=== PATIENT | male | born 1945 | race Hispanic/Latino ===

== ENCOUNTER 2018-12-08 10:13 | Outpatient (CLI) | payer MEDICARE, OTHER ==
--- NOTE | 2018-12-08 12:45 | RAD ---
TWO VIEWS OF THE CHEST: 12/08/18 COMPARISON: 02/20/16. HISTORY: Shortness of breath. FINDINGS: Two views of the chest shows a normal sized cardiomediastinal silhouette. Scarring is seen in the lef t lung base. There is no evidence of consolidation, mass, or pleural effusion. IMPRESSION: Stable exam. POS: [facility] [place]
--- NOTE | 2018-12-08 12:47 | RAD ---
THREE VIEWS OF THE LEFT SHOULDER: 12/08/18 HISTORY: Left shoulder pain. FINDINGS: Three views of the left shoulder shows no evidence of acute fracture or dislocation. There is a high riding humeral head. Joint space narrowing and osteophyte formation is seen in the acromioclavicular and glenohumeral joints. There are remote healed left rib fractures. IMPRESSION: Moderate left shoulder osteoarthritis. POS: [facility]
== END 2018-12-08 10:14 | disposition home or self-care (01) ==
LOC: BICRAD 10:13
DX: M25.512 Pain in left shoulder (principal); R06.02 Shortness of breath; M19.012 Primary osteoarthritis, left shoulder
CPT/HCPCS: 71046

== ENCOUNTER 2019-11-10 19:34 | Emergency (ER) | payer MEDICARE, OTHER ==
[~2019-11-10 19:34] MED LIST: Iopamidol 370 76% 100 ML VIAL ONE
[2019-11-10 20:19] LABS: #Basophils 0.1 thou/uL (0.0-0.2); #Eosinphils 0.1 thou/uL (0.0-0.7); #Lymphocytes 0.9 thou/uL (1.20-3.40); #Monocytes 0.4 thou/uL (0.11-0.59); #Neutrophils 2.4 thou/uL (1.40-6.50); %Basophils 1.5 % (0.0-1.0); %Eosinophils 1.5 % (0.0-10.0); %Lymphocytes 22.7 % (21.0-51.0); %Monocytes 10.7 % (0.0-10.0); %Neutrophils 63.5 % (42.0-75.0); Hemoglobin 10.3 g/dL (14.0-18.0); Mean Corpuscular HGB CONC 34.9 g/dL (32.0-36.0); Mean Corpuscular Hemoglobin 26.5 pg (27.0-31.0); Mean Corpuscular Volume 76.1 fL (78.0-98.0); Mean Platelet Volume 7.5 fL (7.4-10.4); Platelet Count 217 thou/uL (130-400); RBC Distribution Width 13.4 % (11.5-14.5); Red Blood Cell (RBC) Count 3.87 mill/uL (4.70-6.10); White Blood Cell (WBC) Count 3.8 thou/uL (4.8-10.8)
[2019-11-10 20:41] LABS: ALT (SGPT) 20 U/L (8-55); AST (SGOT) 22 U/L (5-34); Albumin 3.9 g/dL (3.4-4.8); Alkaline Phosphatase 145 U/L (40-110); Anion Gap 14 mmol/L (10-20); BUN (Urea Nitrogen) 10 mg/dL (8.4-25.7); Bilirubin, Total 0.2 mg/dL (0.2-1.2); CK (CPK) 258 U/L (30-200); Calc. Creatinine Clearance 0 mL/min (70-130); Calcium 8.7 mg/dL (7.8-10.44); Carbon Dioxide 24 mmol/L (23-31); Chloride 89 mmol/L (98-107); Estimated GFR-MDRD 66; Globulin 2.6 g/dL (2.4-3.5); Glucose 97 mg/dL (83-110); Lipase 10 U/L (8-78); Magnesium 1.4 mg/dL (1.6-2.6); Potassium 3.5 mmol/L (3.5-5.1); Protein, Total 6.5 g/dL (5.8-8.1); Sodium 123 mmol/L (136-145)
--- NOTE | 2019-11-10 21:12 | RAD ---
PORTABLE CHEST: 11/10/19 PROVIDED CLINICAL HISTORY: Shortness of breath and cough. FINDINGS: Comparison 12/08/18. The cardiac silhouette remains enlarged. Blunting of the left lateral costophrenic angle persists. Th ere is opacity overlying the lateral aspect of the left upper lung zone that may be pleural in etiolo gy. The right lung appears grossly clear. There is no evidence for pneumothorax. IMPRESSION: Chronic appearing left basilar pleural and parenchymal opacity with incompletely characterized opacit y involving the lateral margin of the left upper lung zone. This could reflect loculated fluid. The p arenchymal process is not excluded. POS: [facility]
--- NOTE | 2019-11-10 21:30 | CT ---
CT ANGIOGRAM THORAX WITH IV CONTRAST AND 3-D RECONSTRUCTIONS CLINICAL INDICATION: Right-sided chest pain and right shoulder blade pain. COMPARISON: 07/20/2014 FINDINGS: Pulmonary arteries: No filling defects are seen in the pulmonary arteries to suggest a pulmonary embo serenity. Aorta: Vascular calcifications are present. Thoracic aorta is normal in caliber without evidence of a n aortic dissection. Lungs: Minimal ground glass densities seen in the right middle lobe likely related to mild volume los s. There is mild atelectasis present at the left lung base and left upper lung zone. Pleural-based calcification is seen at the posteromedial left upper lobe. There are also reticulonodular densities seen in the left upper and lower lobes. Mediastinum: The heart is enlarged. There is a small pericardial effusion present. There is an enlarged right paratracheal lymph node near the level of the diamante which measures 1.7 cm in short axis dimension. There is also an enlarged subcarinal lymph node measuring 1.8 cm in short axis dimension. Thyroid gland: Artifact extends to the level of the thyroid gland which limits adequate evaluation. Osseous structures: There is a large destructive mass involving the posterior fifth rib which measure s 4.9 cm x 5.8 cm x 3.6 cm. This mass results in mass effect on the left upper lobe with adjacent volume loss. There are a few left-sided rib deformities which may related to prior fracture. Degenera tive changes are seen in the spine. Calcification of the anterior longitudinal ligament is present. Chest wall: No abnormality visualized. Upper abdomen: There is evidence of left nephrectomy and adrenalectomy. Colonic diverticulosis is see n in the region of the splenic flexure.. IMPRESSION: 1. Findings worrisome for metastatic disease with mediastinal lymphadenopathy and a destructive soft tissue mass involving the left posterior fifth rib. This mass is amenable to percutaneous biopsy. 2. Reticulonodular densities seen in the left upper lobe and left lower lobe which could be attributa ble to infectious or inflammatory process. Lymphangitic spread of tumor on the left could not be entirely excluded. 3. Cardiomegaly with small pericardial effusion. 4. Evidence of left nephrectomy and adrenalectomy. 5. No CT evidence of a pulmonary embolus.
== END 2019-11-10 22:03 | disposition home or self-care (01) ==
LOC: ERS 19:34
DX: J06.9 Acute upper respiratory infection, unspecified (principal); E83.42 Hypomagnesemia; E87.1 Hypo-osmolality and hyponatremia; E11.9 Type 2 diabetes mellitus without complications; I10 Essential (primary) hypertension; Z79.899 Other long term (current) drug therapy
CPT/HCPCS: 71045; 71275; 80053; 82550; 83690; 83735; 83880; 84484; 85025; 85379; 93005; Q9967

== ENCOUNTER 2020-01-05 07:41 | Outpatient (CLI) | payer MEDICARE, OTHER ==
--- NOTE | 2020-01-05 12:29 | RAD ---
EXAM: Chest PA and lateral: HISTORY: Preoperative exam. Left lung mass COMPARISON: 11/10/2019 FINDINGS: Heart: Cardiomegaly Aorta: Atherosclerosis Pulmonary vessels: Normal Costophrenic angles: Left-sided pleural effusion. Lungs: No demonstration of a pleural-based mass along the left hemithorax, measuring at least 8.3 cm. Pneumothorax: No pneumothorax Osseous structures: Mottling of the left ribs is noted. IMPRESSION: Persistent left hemithoracic pleural-based mass. Stable changes of the left ribs and stable left pleu ral effusion.
[2020-01-05 14:13] LABS: Hemoglobin 10.4 g/dL (14.0-18.0); Mean Corpuscular HGB CONC 32.4 g/dL (32.0-36.0); Mean Corpuscular Volume 80.2 fL (78.0-98.0); Mean Platelet Volume 7.5 fL (7.4-10.4); Platelet Count 336 thou/uL (130-400); RBC Distribution Width 15.5 % (11.5-14.5); Red Blood Cell (RBC) Count 3.99 mill/uL (4.70-6.10); White Blood Cell (WBC) Count 7.4 thou/uL (4.8-10.8)
[2020-01-05 15:10] LABS: Anion Gap 15 mmol/L (10-20); BUN (Urea Nitrogen) 22 mg/dL (8.4-25.7); Calc. Creatinine Clearance 0 mL/min (70-130); Calcium 9.2 mg/dL (7.8-10.44); Carbon Dioxide 20 mmol/L (23-31); Chloride 100 mmol/L (98-107); Estimated GFR-MDRD 75; Glucose 144 mg/dL (83-110); Potassium 4.4 mmol/L (3.5-5.1); Sodium 131 mmol/L (136-145)
[2020-01-06 12:45] LABS: SARS-CoV-2 MS2 Positive; SARS-CoV-2 N Gene Negative; SARS-CoV-2 S Gene Negative; SARS-CoV-2 by NAA Not Detected (NotDetected); SARS-CoV-2 orf1ab Negative
--- NOTE | 2020-01-09 15:26 | EKG ---
Test Reason : Blood Pressure : / mmHG Vent. Rate : 071 BPM Atrial Rate : 071 BPM P-R Int : 190 ms QRS Dur : 116 ms QT Int : 396 ms P-R-T Axes : 033 -42 021 degrees QTc Int : 430 ms Normal sinus rhythm Left axis deviation Left ventricular hypertrophy with QRS widening Abnormal ECG When compared with ECG of 10-NOV-2019 19:57, No significant change was found Confirmed by CARMELA CORDOBA M.D. ([id number]) on 01/09/2020 3:25:27 PM Referred By: KAMARI Confirmed By:CARMELA CORDOBA M.D.
== END 2020-01-05 07:42 | disposition home or self-care (01) ==
LOC: LABBT 07:41 → SCSRAD 07:42
PROVIDERS: ATTEND Surgery
DX: Z01.818 Encounter for other preprocedural examination (principal); Z20.828 Contact with and (suspected) exposure to other viral communicable diseases; C64.9 Malignant neoplasm of unspecified kidney, except renal pelvis; J90 Pleural effusion, not elsewhere classified; R91.8 Other nonspecific abnormal finding of lung field
CPT/HCPCS: 71046; 80048; 85027; 87635; 93005; 93010; U0003

== ENCOUNTER 2020-01-09 05:56 | Day surgery (SDC) | payer MEDICARE, OTHER ==
[2020-01-04 12:25] VITALS: BMI 33.2
[2020-01-09] MEDS ORDERED: Bupivacaine 0.25% HCL 30 ML VIAL ONE (06:43)
[2020-01-09] MEDS ORDERED: Lidocaine 1% w/Epinephrine 1:100K 20 ML VIAL ONE (06:43)
[2020-01-09] MEDS ORDERED: Midazolam HCl 2 mg/2 ml Vial ONE (06:50)
[2020-01-09] MEDS ORDERED: Fentanyl 100 MCG/2 ML VIAL ONE (06:50)
[2020-01-09] MEDS ORDERED: Propofol 500 MG/50 ML VIAL ONE (06:51)
[2020-01-09] MEDS ORDERED: Albuterol Sulfate 2.5 mg/3 ml Neb ONE (07:03)
--- NOTE | 2020-01-09 08:49 | RAD ---
EXAM: CHEST ONE VIEW HISTORY: Mediport placement. COMPARISON: 01/05/2020 FINDINGS: There has been interval placement of a right internal jugular vein Mediport catheter with tip overlyi ng the expected location of the SVC. No pneumothorax is identified. The pleural-based mass overlying the left upper chest and resulting in obstruction of the left posterior fifth rib is again seen. Deformity of the left posterior seventh rib is again seen. Blunting of the left lateral costophrenic angle is seen seen on multiple prior studies dating back to 2014 likely due to pleural a nd parenchymal scarring. Right lung is clear. No pleural effusion is seen. Cardiac silhouette is magnified by projection but does appear mildly enlarged. Vascular calcifications are seen in thoracic aorta. Surgical clips overlie the epigastric region. No other interval change. IMPRESSION: 1. Interval placement of a right internal jugular vein Mediport catheter without evidence of pneumoth orax. 2. Destructive mass involving the left posterior fifth rib is again seen. 3. Pleural and parenchymal scarring left lung base.
--- NOTE | 2020-01-09 21:18 | OP ---
DATE OF PROCEDURE: 01/09/2020 PREOPERATIVE DIAGNOSIS: Renal cell cancer. POSTOPERATIVE DIAGNOSIS: Renal cell cancer. PROCEDURE PERFORMED: Tunneled central line subcutaneous port (MediPort CT injectable, low-profile). ANESTHESIA: TIVA local. ESTIMATED BLOOD LOSS: Minimal. COMPLICATIONS: None. FINDINGS: The tip of the catheter was at the atriocaval junction. DESCRIPTION OF PROCEDURE: The patient was taken to the operating room and laid supine on the operating room table. After sedation was obtained, bilateral neck and chest were shaved, prepped, and draped in a sterile fashion. Local anesthetic infiltrated over the right internal jugular vein. The internal jugular vein was cannulated using a 22-gauge Finder needle followed by Seldinger needle. Wire was passed into the superior vena cava under fluoro guidance. A small halie was made at the wire entrance site. A separate 3 cm incision was made in the right upper chest. Subcutaneous pocket made below the lower incision. Tubing for the MediPort tunneled from the inferior to superior incision. An introducer sheath was placed over the wire into the superior vena cava under fluoro guidance. The dilator and wire were removed. The end of the catheter threaded into the sheath. The sheath was peeled away. The tip of the catheter was at the atriocaval junction. MediPort tubing was cut to fit the MediPort at the lower incision, connected to the MediPort. MediPort was sewn to the chest wall in the subcutaneous pocket using Prolene. MediPort flushes and draws blood without difficulties, flushed with a heparin flush. The wounds were all irrigated and closed using 3-0 Vicryl, 4-0 Monocryl, and Dermabond. The patient was sent to Recovery in stable condition. All instrument counts, needle counts, lap counts are correct. Job ID: [id number]
== END 2020-01-09 09:20 | disposition home or self-care (01) ==
LOC: SDC 05:56
PROVIDERS: ATTEND Surgery
PROC: 0JH60WZ Insertion of Totally Implantable Vascular Access Device into Chest Subcutaneous Tissue and Fascia, Open Approach (ICD-10-PCS; principal; 2020-01-09)
PROC: 02HV33Z Insertion of Infusion Device into Superior Vena Cava, Percutaneous Approach (ICD-10-PCS; 2020-01-09)
PROC: B518ZZA Fluoroscopy of Superior Vena Cava, Guidance (ICD-10-PCS; 2020-01-09)
DX: C64.9 Malignant neoplasm of unspecified kidney, except renal pelvis (principal); E11.9 Type 2 diabetes mellitus without complications; I10 Essential (primary) hypertension; Z79.52 Long term (current) use of systemic steroids; Z79.82 Long term (current) use of aspirin; Z79.84 Long term (current) use of oral hypoglycemic drugs; Z79.899 Other long term (current) drug therapy; Z91.048 Other nonmedicinal substance allergy status; Z90.5 Acquired absence of kidney
CPT/HCPCS: 71045; 94640; C1788; J0690; J1642; J2250; J2704; J3010; J7611; S0020

== ENCOUNTER 2020-02-28 10:04 | Outpatient (CLI) | payer MEDICARE, OTHER ==
[2020-02-28 23:35] LABS: SARS-CoV-2 MS2 Positive; SARS-CoV-2 N Gene Negative; SARS-CoV-2 S Gene Negative; SARS-CoV-2 by NAA Not Detected (NotDetected); SARS-CoV-2 orf1ab Negative
== END 2020-02-28 10:05 | disposition home or self-care (01) ==
LOC: LABBT 10:04
PROVIDERS: ATTEND Otolaryngology Plastic Surgery within the Head & Neck
DX: Z01.812 Encounter for preprocedural laboratory examination (principal); Z20.828 Contact with and (suspected) exposure to other viral communicable diseases
CPT/HCPCS: 87635; U0003

== ENCOUNTER 2020-03-01 23:36 | Inpatient (IN) | payer MEDICARE, OTHER ==
[2020-03-02 02:08] LABS: Anion Gap 11 mmol/L (10-20); BUN (Urea Nitrogen) 12 mg/dL (8.4-25.7); Calc. Creatinine Clearance 0 mL/min (70-130); Calcium 9.2 mg/dL (7.8-10.44); Carbon Dioxide 24 mmol/L (23-31); Chloride 93 mmol/L (98-107); Estimated GFR-MDRD 80; Glucose 92 mg/dL (83-110); Potassium 4.4 mmol/L (3.5-5.1); Sodium 124 mmol/L (136-145)
--- NOTE | 2020-03-02 04:16 | PDOC.HHP ---
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 Patient has had dysphagia starting since December of this year. He has been following with Dr. Adhikari ENT. He is scheduled for a barium swallow study tomorrow due to progressing symptoms. Patient also has a right submandibular mass that he was told was reactive lymphadenopathy from his chemotherapy. He states that he is still able to swallow small sips of water but is clearing his throat often and feels a globus sensation in the back of his throat making it difficult for him to swallow. States that this is worse when he is laying down or backwards. he was diagnosed on 2008 and is currently on immunotherapy, last treatment was today Hospitalist ROS - Review of Systems All other systems reviewed; all pertinent +/- noted in HPI/Subj Hospitalist History - Past Surgical History Past Surgical History: reports: Hernia Repair Other Surgical History: lobectomy kidney removal - Family History Family History: reports: cancer - Social History Smoking Status: Never smoker Alcohol: reports: None Drugs: reports: none - Exam General Appearance: NAD, awake alert Eye: PERRL, anicteric sclera ENT: normocephalic atraumatic, no oropharyngeal lesions Neck: supple, symmetric, no JVD Heart: RRR, no murmur, no gallops Respiratory: CTAB, no wheezes, no rales, no ronchi Gastrointestinal: soft, non-tender, non-distended Extremities: no cyanosis, no clubbing, no edema Skin: normal turgor, no lesions, no rashes Neurological: cranial nerve grossly intact, normal sensation to touch, no weakness Musculoskeletal: normal tone, normal strength, no muscle wasting Psychiatric: normal affect, normal behavior, A&O x 3 Hospitalist Results - Labs Result Diagrams: 03/02/20 01:30 Lab results: Sodium 124 mmol/L (136-145) L 03/02/20 01:30 Potassium 4.4 mmol/L (3.5-5.1) 03/02/20 01:30 Chloride 93 mmol/L (98-107) L 03/02/20 01:30 Carbon Dioxide 24 mmol/L (23-31) 03/02/20 01:30 BUN 12 mg/dL (8.4-25.7) 03/02/20 01:30 Creatinine 0.93 mg/dL (0.7-1.3) 03/02/20 01:30 Glucose 92 mg/dL (83-110) 03/02/20 01:30 Calcium 9.2 mg/dL (7.8-10.44) 03/02/20 01:30 Hospitalist H&P A/P - Problem (1) Dysphagia Code(s): R13.10 - DYSPHAGIA, UNSPECIFIED Status: Acute (2) Hyponatremia Code(s): E87.1 - HYPO-OSMOLALITY AND HYPONATREMIA Status: Acute (3) Metastatic renal cell carcinoma Code(s): C64.9 - MALIGNANT NEOPLASM OF UNSP KIDNEY, EXCEPT RENAL PELVIS Status: Acute (4) HTN (hypertension) Code(s): I10 - ESSENTIAL (PRIMARY) HYPERTENSION Status: Acute (5) HLD (hyperlipidemia) Code(s): E78.5 - HYPERLIPIDEMIA, UNSPECIFIED Status: Acute - Plan Plan: case of an 74y/o male with the stated pmhx who presents with dysphagia dysphagia - ct consistent with a pharyal mass, likely metastasis - ent consulted - npo - speech eval hyponatremia - ivfs - f/u bmp - tsh / osmolality - calculated osmolality 257 renal cell carcinoma with mets - oncology consulted - pain management
[2020-03-02] MEDS: Sodium Chloride 0.9% 1,000 ML IV SCH (05:49)
[2020-03-02 06:23] VITALS: BMI 34.7
--- NOTE | 2020-03-02 07:58 | CT ---
PRELIMINARY REPORT/[facility]/EMERGENCY AFTER HOURS PROCEDURE EXAM: CT Neck with Intravenous Contrast. CLINICAL HISTORY: 74-year-old male with past medical history significant for renal cell carcinoma with mets to the esop hagus presents with complaints of difficulty swallowing. Patient has had dysphagia starting since December of this year. Patient also has a right submandibular mass that he was told was reactive lym phadenopathy from his chemotherapy. TECHNIQUE: Axial computed tomography images of the neck with intravenous contrast. Sagittal and coronal reformat ions performed. CONTRAST: With; ISOVUE 370, 90ML COMPARISON: None provided. FINDINGS: PHARYNX: Enhancing mass in the posterior hypopharynx measuring 2.2 x 3.1 x 2.0 cm. This narrows the glottic ai rway without obstruction. LARYNX: The larynx is unremarkable. Normal epiglottis. RETROPHARYNGEAL SPACE: No retropharyngeal soft tissue swelling or gas. SALIVARY GLANDS: The parotid, submandibular, and sublingual glands are unremarkable. LYMPH NODES: No lymphadenopathy. THYROID: The thyroid gland is unremarkable. No nodule. BONES: No acute fractures. Multifocal degenerative changes of the spine. Lytic lesion within the T5 vertebra l body measuring 1.8 cm. MISCELLANEOUS: Right-sided chest port. Left upper lobe tree in bud opacities. IMPRESSION: 1. Enhancing mass in the posterior hypopharynx. Correlate with findings on direct visualization. 2. 1.8 cm lytic lesion within the T5 vertebral body. 3. Tree-in-bud opacities within the left upper lobe of the lung. Although nonspecific, this could r epresent atypical infectious process or aspiration. ELECTRONICALLY SIGNED BY: Mati Dove M.D. Mar 02, 2020 2:48:36 AM [employer] This report is intended for review by the ordering physician only, in accordance of law. If you recei ve this report in error, please call [facility] at [phone]. FINAL REPORT CT Neck Soft Tissue W Con History: Dysphagia Comparison: None. Findings/Impression: Concordant with the preliminary report. Transcribed Date/Time: 03/02/2020 8:01 AM
[2020-03-02] MEDS: Enoxaparin Sodium 40 MG/0.4 ML SYRINGE SC SCH ×2 (08:13→08:15)
--- NOTE | 2020-03-02 09:53 | PDOC.BPN ---
- Brief Progress Note Patient was seen examined. This is a 74 years ago gentleman who was admitted this morning, he significant past medical histories of renal cell carcinoma with metastatic to bone, esophagus, lung, who presented with dysphagia. Patient received his treatment from Dr. Salazar in [place]. Stated he was on oral chemo agent, and is no longer working. So his oncologist started him on chemotherapy. He has been experiencing progressive dysphagia, and found to have a right submandibular mass, thought due to reactive lymphadenopathy from his chemotherapy. He was also seen by his PCP, and was given a course of antibiotic, without significant improvement. ENT has been consulted, pending further recommendation. Patient has mild hyponatremia, possibly combinations of poor p.o. intake, and possible SIADH, given history of lung mets. We will repeat his BMP, and adjust fluids accordingly. Avoid overcorrection Obtain records from Dr. Salazar's office Continue management as per admitting provider
--- NOTE | 2020-03-02 11:43 | RAD ---
Modified barium swallow HISTORY: Dysphagia. Feeding difficulties. FINDINGS: Exam was performed in conjunction with speech pathology with multiple consistencies. Video review is available and demonstrates prominent early spill of contrast with the tested consistencies. To the level of the piriform sinuses. Very limited motion of the epiglottis with swallowing. No eversion of the esophagus. Prominent manager switch ior muscular hypertrophy compensation. Deep penetration is seen with most consistencies. Aspiration of a small amount of contrast with the thinner liquids. The esophagus below the level of the hypopharynx was not evaluated. Please see separate detailed report from speech pathology.
[2020-03-02 14:45] LABS: Anion Gap 12 mmol/L (10-20); BUN (Urea Nitrogen) 10 mg/dL (8.4-25.7); Calc. Creatinine Clearance 95 mL/min (70-130); Calcium 9.7 mg/dL (7.8-10.44); Carbon Dioxide 28 mmol/L (23-31); Chloride 98 mmol/L (98-107); Estimated GFR-MDRD 85; Glucose 109 mg/dL (83-110); Potassium 5.2 mmol/L (3.5-5.1); Sodium 133 mmol/L (136-145)
[2020-03-02] MEDS ORDERED: Iopamidol 370 76% 100 ML VIAL ONE (15:14)
[2020-03-02] MEDS ORDERED: hydrALAZINE 20 MG/ML VIAL SLOW IVP PRN (15:25)
--- NOTE | 2020-03-02 20:02 | CON ---
DATE OF CONSULTATION: 03/02/2020 REASON FOR CONSULTATION: Oropharyngeal dysphagia, history of head/neck cancer. CONSULTING PROVIDER: Dr. Harjeet Calles. HISTORY OF PRESENT ILLNESS: The patient is a 74-year-old male with a past medical history of renal cell carcinoma with metastatic disease to the esophagus, lung, and bone with hypertension and diabetes, presenting with complaints of dysphagia. He states that he has been having intermittent episodes of dysphagia that have been occurring since August of 2019 characterized primarily as the sensation of foods getting stuck at the level of the cricoid cartilage with the ingestion of both solid and liquid foods. Oftentimes, the patient would have coughing/gurgling sounds associated with primarily liquid food ingestion, but also sometimes with solid food. He was seen by Dr. Adhikari (ENT) with a CT neck performed months ago with no specific findings at that time. He was also evaluated by my partner, Dr. Louis, who performed an upper endoscopy on November 25, 2019, with no specific abnormality seen in the hypopharynx or esophagus to explain the patient's dysphagia. Dilation to 18 mm with a Savary dilator did not result in any appreciable change. However, yesterday evening, the patient was consuming dinner and suddenly had acute onset of obstructive dysphagia to the point where the patient was not able to swallow either solids or liquids, at which point, it prompted him to seek healthcare assistance at the [facility] and came in for further evaluation. On admission to the hospital, he underwent a modified barium swallow study which showed deep penetration with most consistencies, but also small amount of aspiration with thin liquids consistent with oropharyngeal dysphagia. With the above symptoms, he also endorsed increased shortness of breath especially with lying down, intermittent nausea (since starting Afinitor), odynophagia, fatigue, and weight loss of 17 to 18 pounds since June of this year. Currently, he denies any dyspnea on exertion, vomiting, fevers, chills, hematemesis, melena, or hematochezia. REVIEW OF SYSTEMS: A 10-category review of systems was obtained with all responses negative except for the pertinent positives as listed in HPI. PAST MEDICAL HISTORY: As per HPI. PAST SURGICAL HISTORY: Nephrectomy, lobectomy, and hernia repair. FAMILY HISTORY: Denies any GI malignancies. SOCIAL HISTORY: Denies any tobacco, alcohol, or illicit drug use. OUTPATIENT MEDICATIONS: Reviewed. ALLERGIES: NO KNOWN DRUG ALLERGIES. PHYSICAL EXAMINATION: VITAL SIGNS: Temperature 97.7, pulse 72, blood pressure 160/80, respiratory rate 20, saturating 94% on room air. GENERAL: The patient was lying in bed, in no acute distress. Alert and oriented x4. HEENT: Normocephalic and atraumatic. NECK: Supple. No JVD or scleral icterus noted. A submandibular lymph node was palpated along the right mandible. CARDIOVASCULAR: Regular rate and rhythm with no discernible murmurs, gallops, or rubs. RESPIRATORY: Clear to auscultation bilaterally with no discernible wheezes or rales. ABDOMEN: Normoactive bowel sounds. Soft, nontender, nondistended. EXTREMITIES: No cyanosis, clubbing, or edema. LABORATORY DATA: Chemistry with a sodium of 124, potassium 4.4, chloride 93, CO2 of 24, BUN 12, creatinine 0.93, glucose 92. IMAGING DATA: A modified barium swallow study obtained on March 02, 2020, showed limited motion of the epiglottis with swallowing. Deep penetration was also seen with most consistencies as well as a small amount of aspiration with the ingestion of thin liquids. CT of the neck was also performed on March 02, 2020, which showed the presence of an enhancing mass in the posterior hypopharynx measuring 2.2 x 3.1 x 2 cm with narrowing of the glottic airway without obstruction. The larynx was unremarkable with a normal epiglottis. Multifocal degenerative changes were seen in the spine with a lytic lesion within the T5 vertebra measuring 1.8 cm and lastly, there were tree-in-bud opacities in the left upper lobe of the lung, which could represent an atypical process versus aspiration. ASSESSMENT AND PLAN: The patient is a 74-year-old male with past medical history of hypertension, diabetes, and renal cell carcinoma with metastatic disease to the esophagus, lung, and bone (currently on immunotherapy), presenting with complaints of oropharyngeal dysphagia with signs of aspiration on modified barium swallow study. Oropharyngeal dysphagia: The patient is presenting with worsening dysphagia. This has been present since August of 2019, characterized as the sensation of foods getting stuck at the level of the cricoid cartilage with both ingestion of solid and liquid food stuffs. However, over the last 24 hours, he has had significant worsening of dysphagia being unable to tolerate solids or liquids resulting in increased coughing and gagging. CT of the head and neck obtained on March 02 showed the presence of an enhancing mass in the posterior hypopharynx, which is concerning for continued metastatic disease from his prior renal cell carcinoma and maybe resulting in muscular discoordination contributing to oropharyngeal dysphagia. He also underwent a modified barium swallow study which showed evidence of possible aspiration and penetration. At this time, the patient's dysphagia seems most consistent with oropharyngeal dysphagia resulting in aspiration and with an enhancing mass in the posterior hypopharynx, the patient may benefit from a percutaneous gastrostomy tube to provide nutrition both during treatment of this hypopharynx mass in addition to bypassing the oropharynx secondary to aspiration to prevent further episodes of aspiration. RECOMMENDATIONS: 1. Would continue patient on n.p.o. status given the modified barium swallow study showing aspiration. 2. Would plan for EGD with percutaneous gastrostomy tube placement tomorrow. Risks and benefits of this procedure were discussed with both patient and family. 3. Would defer to Otolaryngology Service for further evaluation and treatment of the posterior hypopharynx mass. 4. Agree with consultation of Oncology Service for metastatic renal cell carcinoma, possibly contributing to his current clinical situation. We will continue to follow. Please call with any questions. Job ID: [id number]
[2020-03-03] MEDS: Sodium Chloride 0.9% 1,000 ML IV SCH (04:58)
[2020-03-03 07:22] LABS: #Eosinphils 0.2 thou/uL (0.0-0.7); #Monocytes 0.5 thou/uL (0.11-0.59); #Neutrophils 4.9 thou/uL (1.40-6.50); %Basophils 0.7 % (0.0-1.0); %Eosinophils 2.6 % (0.0-10.0); %Lymphocytes 14.8 % (21.0-51.0); %Monocytes 7.9 % (0.0-10.0); Hemoglobin 11.1 g/dL (14.0-18.0); Mean Corpuscular HGB CONC 33.5 g/dL (32.0-36.0); Mean Corpuscular Hemoglobin 27.3 pg (27.0-31.0); Mean Corpuscular Volume 81.6 fL (78.0-98.0); Mean Platelet Volume 6.6 fL (7.4-10.4); Platelet Count 289 thou/uL (130-400); RBC Distribution Width 14.4 % (11.5-14.5); Red Blood Cell (RBC) Count 4.07 mill/uL (4.70-6.10); White Blood Cell (WBC) Count 6.7 thou/uL (4.8-10.8)
[2020-03-03] MEDS: Enoxaparin Sodium 40 MG/0.4 ML SYRINGE SC SCH (09:10)
[2020-03-03] MEDS ORDERED: PROPOFOL 200 MG/20 ML VIAL ONE (12:29)
[2020-03-03] MEDS ORDERED: Fentanyl 100 MCG/2 ML VIAL ONE (13:16)
--- NOTE | 2020-03-03 13:34 | OP ---
DATE OF PROCEDURE: 03/03/2020 PROCEDURES PERFORMED: Esophagogastroduodenoscopy with percutaneous gastrostomy tube placement. INDICATION FOR PROCEDURE: Oropharyngeal dysphagia and metastatic renal cell carcinoma. DESCRIPTION OF PROCEDURE: After the risks and benefits of the procedure were explained to the patient including risks of bleeding, infection, perforation, reactions to anesthesia, aspiration, and/or pain, informed consent was obtained. The patient was then taken to the endoscopy suite, where deep sedation was administered via propofol and anesthesia support. Once adequate sedation was achieved, the standard gastroscope was introduced into the mouth with intubation of the esophagus, stomach, and the proximal small intestines with the findings listed below. After initial examination of the upper GI tract, the scope was then withdrawn into the stomach and insufflation was performed using one-to-one compression and transillumination. A suitable site for the percutaneous gastrostomy tube was then found. The patient was then prepped and draped in sterile fashion with chlorhexidine soap prior to placing a sterile drape over the site. Approximately 5 mL of 1% lidocaine was then drawn up in a syringe and initially instilled in a wheal formation just underneath the skin. The needle was then directed perpendicular to the skin and advanced into the stomach with back pressure as it was advanced. Upon withdrawal of the needle, the remainder of the 5 mL of lidocaine was instilled along the tract adequate local anesthesia was then allowed to occur. Using a scalpel, a 1 cm vertical incision was then performed with minimal oozing of blood. Then, using an aspiration needle, the aspiration needle was then advanced along the anesthetized tract and into the stomach. After removing the needle from the catheter, a guidewire was then advanced into the stomach and retrieved in the stomach via snare through the biopsy port on the gastroscope. Upon successfully securing the guidewire, it was then withdrawn through the mouth and secured at both ends. The distal end was then affixed to a [employer] 20-Palauan percutaneous gastrostomy tube and using a push technique was then advanced into the stomach with the gastrostomy tube now coming through the anterior wall of the stomach and through the anterior abdominal wall. Approximately 2.5 cm was seen on the gastrostomy tube at the skin after successful pulling it through. The tube was then cut to length with the external bumper and an external adapter affixed to the PEG tube. The patient tolerated the procedure well with no immediate perioperative complications. On conclusion of the procedure, all other equipment was removed from the patient and the patient was transferred to PACU in satisfactory condition. Second-look endoscopy was performed before removing all the equipment with good position of the PEG tube within the stomach. FINDINGS: Esophagus: Normal-appearing mucosa was seen in the proximal, mid, and distal esophagus. There was no evidence of erosions, ulcerations, mass lesions, or active/recent bleeding. Stomach: Normal-appearing mucosa was seen in the gastric cardia, fundus, body, greater curvature, antrum, and incisura. There was no evidence of erosions, ulcerations, mass lesions, or active/recent bleeding. Duodenum: Normal-appearing mucosa was seen in both the duodenal bulb and second portion of the duodenum. There was no evidence of erosions, ulcerations, mass lesions, or active/recent bleeding. Gastrostomy tube: A [employer] 20-Palauan percutaneous gastrostomy tube was successfully placed along the greater curvature of the stomach without difficulty with the description listed above. IMPRESSION: 1. Normal upper endoscopy. 2. Successful placement of a [employer] 20-Palauan percutaneous gastrostomy tube along the greater curvature of the stomach. RECOMMENDATIONS: 1. Would continue the patient on n.p.o. status with consultation placed for Dietary Services for tube feed recommendations. 2. Would not use the tube for approximately 6 hours after placement and would clinically evaluate the patient for signs of postprocedure complications. If doing well after 6 hours, would start tube feeds according to Dietary recommendations. 3. Would adhere to standard PEG tube care. 4. Would refrain from placing any dressings between the external bumper and the skin as it can cause pressure necrosis. 5. Would instill approximately 60 mL of water both before and after any tube feeds. 6. Pain control per primary team. We will continue to follow. Please call with any questions. Job ID: [id number]
--- NOTE | 2020-03-03 13:55 | PDOC.HOSPP ---
- Subjective Encounter Date: 03/03/20 Encounter Time: 01:50 Subjective: Patient just returned from PEG tube placement. He just received a 100 mcg fentanyl IV prior to coming to the floor. Discussed the care with him. Neck mass biopsy has to be done in order to find whether it is a reactive lym phadenopathy versus primary squamous versus mets from renal. However conversation with his urologist revealed this may not be metastatic renal cell cancer as it this is unusual presentation. PEG tube in place. The right neck mass. - Objective Vital Signs & Weight: Vital Signs (12 hours) Temp Pulse Resp BP BP BP Pulse Ox 03/03/20 07:31 97.5 F L 92 16 132/63 96 03/03/20 04:30 158/70 H 03/03/20 04:00 97.4 F L 78 20 164/70 H 95 Weight Admit Weight 196 lb Weight 196 lb I&O: 03/02/20 03/03/20 03/04/20 06:59 06:59 06:59 Intake Total 480 Balance 480 Result Diagrams: 03/03/20 07:00 03/02/20 13:54 Additional Labs: Accuchecks 03/03/20 03/02/20 03/02/20 04:30 19:09 15:30 POC Glucose 89 87 91 Hospitalist ROS - Medication Medications: Active Medications Generic Name Dose Route Start Last Admin Trade Name Freq PRN Reason Stop Dose Admin Enoxaparin Sodium 40 mg 03/02/20 09:00 03/03/20 09:10 Enoxaparin Sodium 40 Mg/0.4 Ml Syringe SC Not Given 0900 DRAKE Sodium Chloride 1,000 mls @ 40 mls/hr 03/02/20 03:45 03/03/20 04:58 Normal Saline 0.9% IV Not Given .Q24H DRAKE Sodium Chloride 10 ml 03/02/20 09:00 03/03/20 10:16 Flush - Normal Saline 10 Ml Syringe IVF Not Given Q12HR DRAKE - Exam General Appearance: NAD, awake alert Eye: PERRL ENT: normocephalic atraumatic Neck: supple Heart: RRR Respiratory: CTAB, normal chest expansion Gastrointestinal: soft, normal bowel sounds Gastrointestinal - other findings: PEG tube Neurological: no focal deficits Psychiatric: A&O x 3 Hosp A/P - Plan Dysphagia Code(s): R13.10 - DYSPHAGIA, UNSPECIFIED Status: Acute (2) Hyponatremia Code(s): E87.1 - HYPO-OSMOLALITY AND HYPONATREMIA Status: Acute Renal cell carcinoma with metastatic to bone, esophagus, lung, who presented w ith dysphagia. -Patient received his treatment from Dr. Salazar in [place]. Stated he was on oral chemo agent, and is no longer working. 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 Adhikari who did the laryngoscopy. Patient will follow up with Dr. Adhikari for further care as an outpatient. -PEG tube placed on . We will consult junior buyer to start the tube feed. As above right neck mass/pharyngeal mass I talked to the patient after PEG tube placement. He is considering getting the biopsy as well. Will discuss further on before consulting interventional radiologist for the same. hyponatremia, mild - ivfs - f/u bmp renal cell carcinoma with mets - oncology consulted - pain management -He is on morphine 2 mg every 4.
[2020-03-03 14:39] LABS: #Eosinphils 0.1 thou/uL (0.0-0.7); #Lymphocytes 0.7 thou/uL (1.20-3.40); #Monocytes 0.4 thou/uL (0.11-0.59); #Neutrophils 3.6 thou/uL (1.40-6.50); %Basophils 0.3 % (0.0-1.0); %Eosinophils 1.7 % (0.0-10.0); %Lymphocytes 15.3 % (21.0-51.0); %Monocytes 8.4 % (0.0-10.0); %Neutrophils 74.3 % (42.0-75.0); Hemoglobin 10.7 g/dL (14.0-18.0); Mean Corpuscular HGB CONC 33.4 g/dL (32.0-36.0); Mean Corpuscular Hemoglobin 27.6 pg (27.0-31.0); Mean Corpuscular Volume 82.5 fL (78.0-98.0); Mean Platelet Volume 6.5 fL (7.4-10.4); Platelet Count 288 thou/uL (130-400); RBC Distribution Width 14.5 % (11.5-14.5); Red Blood Cell (RBC) Count 3.87 mill/uL (4.70-6.10); White Blood Cell (WBC) Count 4.8 thou/uL (4.8-10.8)
[2020-03-03] MEDS: Morphine 2 MG/ML VIAL SLOW IVP PRN (16:17)
[2020-03-03] MEDS ORDERED: Morphine 2 MG/ML VIAL SLOW IVP SCH (19:45)
[2020-03-04] MEDS: Morphine 2 MG/ML VIAL SLOW IVP PRN ×4 (02:27→21:42)
[2020-03-04] MEDS: Sodium Chloride 0.9% 1,000 ML IV SCH (05:16)
[2020-03-04 06:38] LABS: Anion Gap 12 mmol/L (10-20); BUN (Urea Nitrogen) 12 mg/dL (8.4-25.7); Calc. Creatinine Clearance 104 mL/min (70-130); Calcium 9.1 mg/dL (7.8-10.44); Carbon Dioxide 26 mmol/L (23-31); Chloride 101 mmol/L (98-107); Estimated GFR-MDRD Greater than 90; Glucose 94 mg/dL (83-110); Potassium 4.1 mmol/L (3.5-5.1); Sodium 135 mmol/L (136-145)
[2020-03-04] MEDS: Enoxaparin Sodium 40 MG/0.4 ML SYRINGE SC SCH (08:04)
--- NOTE | 2020-03-04 14:08 | PDOC.HOSPP ---
- Objective Vital Signs & Weight: Vital Signs (12 hours) Temp Pulse Resp BP BP BP Pulse Ox 03/04/20 07:30 97.6 F 72 16 147/71 H 99 03/04/20 06:00 158/70 H 03/04/20 05:27 77 03/04/20 05:00 168/78 H 03/04/20 04:00 97.6 F 77 20 155/73 H 98 Weight Admit Weight 196 lb Weight 196 lb I&O: 03/03/20 03/04/20 03/05/20 06:59 06:59 06:59 Intake Total 480 2 480 Balance 480 2 480 Result Diagrams: 03/03/20 14:24 03/04/20 05:41 Hospitalist ROS - Medication Medications: Active Medications Generic Name Dose Route Start Last Admin Trade Name Freq PRN Reason Stop Dose Admin Enoxaparin Sodium 40 mg 03/02/20 09:00 03/04/20 08:04 Enoxaparin Sodium 40 Mg/0.4 Ml Syringe SC 40 mg 0900 DRAKE Administration Hydralazine HCl 10 mg 03/02/20 15:25 03/04/20 05:27 Hydralazine 20 Mg/Ml Vial SLOW IVP 10 mg Q4H PRN Administration Persistent BP Elevations Sodium Chloride 1,000 mls @ 40 mls/hr 03/02/20 03:45 03/04/20 05:16 Normal Saline 0.9% IV 1,000 mls .Q24H DRAKE Administration Morphine Sulfate 2 mg 03/02/20 04:13 03/04/20 06:54 Morphine 2 Mg/Ml Vial SLOW IVP 2 mg Q4H PRN Administration Pain Sodium Chloride 10 ml 03/02/20 09:00 03/04/20 08:06 Flush - Normal Saline 10 Ml Syringe IVF Not Given Q12HR DRAKE Hosp A/P - Plan Dysphagia Code(s): R13.10 - DYSPHAGIA, UNSPECIFIED Status: Acute (2) Hyponatremia Code(s): E87.1 - HYPO-OSMOLALITY AND HYPONATREMIA Status: Acute 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 -Patient received his treatment from Dr. Salazar in [place]. Stated he was on oral chemo agent, and is no longer working. 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 Adhikari who did the laryngoscopy. Patient will follow up with Dr. Adhikari for further care as an outpatient. -PEG tube placed on . We will consult project planner to start the tube feed. As above right neck mass/pharyngeal mass I talked to the patient after PEG tube placement. He is considering getting the biopsy as well. Will discuss further on before consulting interventional radiologist for the same. hyponatremia, mild--------- renal cell carcinoma with mets - pain management -He is on morphine 2 mg every 4 hrs. Will talk to the interventional radiologist tomorrow for possible neck mass biopsy. Meanwhile will also consult oncologist for their recommendation Patient on tube feed via PEG tube
--- NOTE | 2020-03-04 17:41 | PRG ---
DATE OF SERVICE: 03/04/2020 REASON FOR CONSULTATION: Oropharyngeal dysphagia. SUBJECTIVE: The patient states that they started tube feeds on him yesterday and he has been able to tolerate that well in a bolus type format without any difficulty. He has been having some pain right around the PEG tube wound site that has been occurring intermittently and primarily with movements in and out of the bed. Otherwise, he states that he is doing well with no complaints of nausea, vomiting, fevers, chills, hematemesis, melena, or hematochezia. OBJECTIVE: VITAL SIGNS: Temperature 97.6, pulse 72, blood pressure 147/71, respiratory rate 16, and saturating 99% on room air. GENERAL: The patient was lying in bed, in no acute distress. Alert and oriented x4. CARDIOVASCULAR: Regular rate and rhythm. RESPIRATORY: Clear to auscultation bilaterally. ABDOMEN: Normoactive bowel sounds. Soft, nondistended. Mild tenderness to palpation around the PEG tube site itself. The PEG tube was seen in the left upper quadrant with no evidence of purulence or skin erythema. The dressings were clean, dry, and intact. EXTREMITIES: No cyanosis, clubbing, or edema. LABORATORY DATA: Chemistry with a sodium of 135, potassium 4.1, chloride 101, CO2 of 26, BUN 12, creatinine 0.81, and glucose 94. IMAGING DATA: The patient underwent upper endoscopy on March 03, 2020, which showed normal findings within the esophagus, stomach, and the proximal small intestines and with the successful placement of a [employer] 20-[place]cu[place]orean percutaneous gastrostomy tube. ASSESSMENT AND PLAN: The patient is a 74-year-old male with past medical history of hypertension, diabetes, and renal cell carcinoma with metastatic disease to the esophagus, lung, and bone (not seen on recent upper endoscopy), presenting with oropharyngeal dysphagia and signs of aspiration on modified barium swallow study. Oropharyngeal dysphagia: The patient has been having progressively worsening dysphagia since August of 2019, and during the course of this hospitalization had a modified barium swallow study that showed the presence of aspiration. Subsequently, he underwent upper endoscopy on March 03, 2020, with normal findings within the esophagus, stomach, and the proximal small intestines and a successful placement of a 20-Ecu[place]orean PEG tube. At this time, the patient has been placed on bolus tube feeds and is doing well without any difficulty and minimal pain around the wound site itself. RECOMMENDATIONS: 1. We would continue the patient on n.p.o. status with all tube feeds and medications going through the PEG tube. 2. Continue standard PEG tube care. 3. We would defer to ENT Service for further evaluation and treatment of the posterior hypopharynx mass along with Oncology consultation for the metastatic renal cell carcinoma. We will sign off at this time. Please call with any questions. Job ID: [id number]
[2020-03-04] MEDS: Chloraseptic Spray 180 ml Bottle PO PRN (21:43)
[2020-03-05] MEDS: Morphine 2 MG/ML VIAL SLOW IVP PRN ×3 (04:00→19:51)
[2020-03-05] MEDS: Sodium Chloride 0.9% 1,000 ML IV SCH (04:01)
[2020-03-05] MEDS: Chloraseptic Spray 180 ml Bottle PO PRN (04:12)
[2020-03-05] MEDS: Enoxaparin Sodium 40 MG/0.4 ML SYRINGE SC SCH (08:54)
--- NOTE | 2020-03-05 13:20 | PDOC.HOSPP ---
- Subjective Encounter Date: 03/05/20 Encounter Time: 10:10 Subjective: Patient is standing in the room. He is not in any respiratory distress he is talking. He does have some discomfort in his throat. But not hemodynamically unstable. I talked to the daughter over the phone and in the patient room at least for 20 minutes. She had some lots of questions about the mass in the neck area. Prior to that I talked with interventional radiologist and has to be at the biopsy has to be done by ENT while they are doing laryngoscopy. Talk to Dr. Adhikari ENT and they are planning to do the laryngoscopy with biopsy on Thursday, according to him the patient can be sent home. However family is very concerned about his shortness of breath and preferred that he is here until the procedure is completed. Even though I tried to convince them that he does not have any acute shortness of breath they are worried about him going home and the mass is obstructing his trachea and causing short of breath. They also prefer pulmonary consult as well. Placed oncology consult. - Objective Vital Signs & Weight: Vital Signs (12 hours) Temp Pulse Resp BP BP Pulse Ox 03/05/20 08:55 95 03/05/20 07:47 98.0 F 80 20 153/74 H 95 03/05/20 04:00 97.7 F 79 18 159/72 H 97 Weight Admit Weight 196 lb Weight 196 lb I&O: 03/04/20 03/05/20 03/06/20 06:59 06:59 06:59 Intake Total 2 3204 Balance 2 3204 Result Diagrams: 03/03/20 14:24 03/04/20 05:41 Hospitalist ROS - Medication Medications: Active Medications Generic Name Dose Route Start Last Admin Trade Name Freq PRN Reason Stop Dose Admin Enoxaparin Sodium 40 mg 03/02/20 09:00 03/05/20 08:54 Enoxaparin Sodium 40 Mg/0.4 Ml Syringe SC 40 mg 0900 DRAKE Administration Hydralazine HCl 10 mg 03/02/20 15:25 03/04/20 05:27 Hydralazine 20 Mg/Ml Vial SLOW IVP 10 mg Q4H PRN Administration Persistent BP Elevations Sodium Chloride 1,000 mls @ 40 mls/hr 03/02/20 03:45 03/05/20 04:01 Normal Saline 0.9% IV 1,000 mls .Q24H DRAKE Administration Morphine Sulfate 2 mg 03/02/20 04:13 03/05/20 12:03 Morphine 2 Mg/Ml Vial SLOW IVP 2 mg Q4H PRN Administration Pain Phenol 0 ml 03/04/20 18:07 03/05/20 04:12 Chloraseptic [place] 180 Ml Bottle PO 1 spr TID PRN Administration SORE THROAT Sodium Chloride 10 ml 03/02/20 09:00 03/05/20 08:54 Flush - Normal Saline 10 Ml Syringe IVF Not Given Q12HR DRAKE - Exam General Appearance: NAD, awake alert General - other findings: He has no distress. Sats are good in the room air. Eye: PERRL ENT: normocephalic atraumatic ENT - other findings: Neck swelling Heart: RRR Respiratory: CTAB Gastrointestinal: soft, normal bowel sounds Neurological: no focal deficits Psychiatric: A&O x 3 Hosp A/P - Plan Dysphagia Code(s): R13.10 - DYSPHAGIA, UNSPECIFIED Status: Acute (2) Hyponatremia Code(s): E87.1 - HYPO-OSMOLALITY AND HYPONATREMIA Status: Acute 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 -Patient received his treatment from Dr. Salazar in [place]. Stated he was on oral chemo agent, and is no longer working. 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 Adhikari who did the laryngoscopy. Patient will follow up with Dr. Adhikari for further care as an outpatient. -PEG tube placed on . We will consult novelty chain maker to start the tube feed. As above right neck mass/pharyngeal mass I talked to the patient after PEG tube placement. He is considering getting the biopsy as well. Will discuss further on before consulting interventional radiologist for the same. hyponatremia, mild--------- renal cell carcinoma with mets - pain management -He is on morphine 2 mg every 4 hrs. Will talk to the interventional radiologist tomorrow for possible neck mass biopsy. Meanwhile will also consult oncologist for their recommendation Patient on tube feed via PEG tube I talked to the daughter over the phone in the patient room at least for 20 minutes. She had lots of questions about the mass in the neck area. Prior to that, I talked with interventional radiologist and biopsy has to be done by ENT while they are doing laryngoscopy. Talk to Dr. Adhikari ENT and they are planning to do the laryngoscopy with biopsy on Thursday, according to him the patient can be sent home. However family is very concerned about his shortness of breath and preferred mark t he is here until the procedure is completed. Even though I tried to convince them that he does not have any acute shortness of breath, they are worried about him going home and the mass is obstructing his trachea and causing short of breath etc. etc. they also prefer pulmonary consul t as well. Placed oncology consult. I talked to the second sister also-- spent over 20 minutes explaining the plan of care all over again.
[2020-03-05] MEDS ORDERED: Dexamethasone 4 mg/ml Vial SLOW IVP SCH (16:45)
[2020-03-05] MEDS: Dexamethasone 4 mg/ml Vial SLOW IVP SCH (19:51)
[2020-03-05] MEDS: Mometasone 200 MCG/Formoterol 5 MCG 120 PUFF INHALER INH SCH (20:16)
--- NOTE | 2020-03-05 23:12 | CON ---
DATE OF CONSULTATION: REASON FOR CONSULT: Renal cell carcinoma. HISTORY OF PRESENT ILLNESS: Mr. Christopher is a pleasant 74-year-old gentleman who has metastatic renal cell carcinoma. He has undergone treatment with a left nephrectomy, a right lobectomy, Sutent, and Afinitor. He is currently on immunotherapy with Opdivo. His last dose was on , the day of admission. He sees a physician in [place]. He is followed by Dr. Adhikari with ENT for progressive dysphagia. He underwent a CT of his neck, which showed a mass in the posterior hypopharynx measuring 2.2 x 3.1 x 2.0 cm. He was seen at bedside and is able to speak clearly. He denies any chest pain, shortness of breath, abdominal pain, diarrhea, or significant weight loss. PAST MEDICAL HISTORY: 1. Metastatic renal cell carcinoma with bone, lung, and esophageal METS. 2. Hypertension. 3. Diabetes. PAST SURGICAL HISTORY: 1. Left nephrectomy. 2. Right lower lobe lobectomy. 3. Hernia repair. ALLERGIES: NO KNOWN DRUG ALLERGIES. HOME MEDICATIONS: Unknown. FAMILY HISTORY: Noncontributory. SOCIAL HISTORY: No alcohol, tobacco, or illicit drug use. REVIEW OF SYSTEMS: A 10-point review of systems is negative except for noted in HPI. PHYSICAL EXAMINATION: VITAL SIGNS: Temperature is 98, pulse is 80, respiratory rate 20, blood pressure is 153/74. He is 95% on room air. GENERAL: Well-developed, well-nourished male, in no acute distress. HEENT: Normocephalic, atraumatic. NECK: Supple. CVS: Regular rate and rhythm. LUNGS: Clear. ABDOMEN: Soft. He has a PEG tube in place. EXTREMITIES: No clubbing or cyanosis. NEUROLOGICAL: Nonfocal. PERTINENT LABORATORY DATA AND X-RAYS: WBCs 4.8, hemoglobin 10.7, hematocrit 31.9, platelet count 288,000, 75% neutrophils, 15% lymphocytes. Sodium 135, potassium 4.1, chloride 101, CO2 is 26, BUN is 12, creatinine 0.81. Serum osmo 283, calcium 9.1, TSH 1.12. Radiology: Per HPI. ASSESSMENT: 1. Metastatic renal cell carcinoma. 2. Lesion in his posterior hypopharynx. 3. Dysphagia, status post PEG tube placement. DISCUSSION: The patient states he has been in remission until recently when he had progressive bone mets. He was on Afinitor, which was stopped. Opdivo immunotherapy was initiated. He states he has had 5 cycles, and is tolerating well. He presented with dysphagia, failed his swallow study, and now has a PEG tube in place. It is unclear if this lesion in the hypopharynx is metastatic disease or a second primary. Plan is for biopsy on Thursday. Patient has been treated by a medical oncologist in [place] since 2007. He is getting financial assistance there for his immune checkpoint inhibitor. We discussed that it is in his best interest to return where he is established. He is in no distress at this time, and is getting nutrition through his PEG tube. He could be discharged after the biopsy to follow up in [place]. Thank you for the consult. Job ID: [id number] [facility]
[2020-03-06] MEDS: Sodium Chloride 0.9% 1,000 ML IV SCH ×2 (06:01→23:54)
--- NOTE | 2020-03-06 06:10 | CON ---
DATE OF CONSULTATION: HISTORY OF PRESENT ILLNESS: Alejandro Christopher is a 74-year-old gentleman who has been in the hospital here since 03/02/2020. Being consulted today regarding his pulmonary status. He is actually from [place] presented here with history of dysphagia. Additionally, he has known history of metastatic carcinoma. Apparently, renal cell with mets to the lung, esophagus, now presented with dysphagia. He saw local ENT, Dr. Adhikari was scheduled for a swallow test. In fact, he was just seen by the doctor today and scheduled for a biopsy of his pharyngeal mass on Thursday, 2 days from today. The patient says he has used inhaler in the past. He is having some wheezing. Most of his physicians are in [place], [place]. He just had a PEG inserted for dysphagia. PAST MEDICAL HISTORY: Hernia surgery, previous nephrectomy, lobectomy, cholecystectomy, small bowel resection. SOCIAL HISTORY: No alcohol or tobacco abuse. Presently disabled. MEDICATIONS: Home medicine unknown. REVIEW OF SYSTEMS: Otherwise 10 point negative. PHYSICAL EXAMINATION: VITAL SIGNS: Temperature 98.0, pulse 80, respiratory rate 20, saturations room air, blood pressure 153/74. CHEST: Bilateral wheezing. CARDIAC: Normal S1, S2. No gallops. ABDOMEN: Soft. NEUROLOGIC: Awake, alert, and responsive. LABORATORY AND DIAGNOSTIC DATA: His chest x-ray shows the previously mentioned left pleural based mass, dysphagia, biopsy in 2 days. ASSESSMENT: 1. Left pleural based mass, dysphagia, biopsy in 2 days. 2. He is status post PEG. 3. Status post MediPort insertion. 4. Chronic obstructive pulmonary disease asthma. PLAN: I have added some Dulera to his present regimen. Await input from ENT. I may start him on low-dose Decadron for a few days. He has already had a CT of his chest done in October 2019. If symptoms worsen, may be worthwhile repeating his CT again. progressive disease. It is unclear where he is going to get his treatment in [place] or locally. Pulmonary is going to follow. This is a consultation note, 70 minutes, 50% direct patient care. Job ID: [id number]
[2020-03-06] MEDS: Amlodipine 10 MG TAB PO SCH (09:28)
[2020-03-06] MEDS: Metoprolol Tartrate 25 MG TAB PO SCH ×2 (09:29→20:06)
[2020-03-06] MEDS: Enoxaparin Sodium 40 MG/0.4 ML SYRINGE SC SCH (09:30)
[2020-03-06] MEDS: Dexamethasone 4 mg/ml Vial SLOW IVP SCH ×3 (09:34→20:01)
--- NOTE | 2020-03-06 11:28 | PRG ---
DATE OF SERVICE: 03/06/2020 SUBJECTIVE: Alejandro Christopher is a 74-year-old gentleman. This morning, said he is feeling better. OBJECTIVE: VITAL SIGNS: Temperature 97, pulse 60, blood pressure 140/62, sats room air. CHEST: No wheezing. CARDIAC: Normal S1, S2. No gallops. ABDOMEN: No masses. IMPRESSION: Metastatic cancer, pharyngeal mass, chronic obstructive pulmonary disease, cough. PLAN: He appears to be improved pulmonary marshall. Await ENT, biopsy pharyngeal mass, PT, supportive care. He has had a PEG placed in. Pulmonary/Critical Care will follow. Job ID: [id number]
--- NOTE | 2020-03-06 12:47 | PDOC.HOSPP ---
- Subjective Encounter Date: 03/06/20 Encounter Time: 12:30 Subjective: Patient was seen and examined at the bedside. Patient slept well last night but reports to have some midline abdominal pain from the feeding tube placement. - Objective Vital Signs & Weight: Vital Signs (12 hours) Temp Pulse Resp BP BP BP Pulse Ox 03/06/20 12:00 98.2 F 64 18 155/75 H 96 03/06/20 09:28 60 148/62 H 03/06/20 08:00 97 03/06/20 07:26 97.5 F L 60 19 148/62 H 97 03/06/20 06:02 65 18 158/77 H 03/06/20 04:00 97.6 F 67 20 188/69 H 98 Weight Admit Weight 196 lb Weight 196 lb I&O: 03/05/20 03/06/20 03/07/20 06:59 06:59 06:59 Intake Total 3204 2290 100 Balance 3204 2290 100 Result Diagrams: 03/03/20 14:24 03/04/20 05:41 Hospitalist ROS - Review of Systems ENT: reports: throat pain. denies: ear pain, nose pain, nose discharge, nose congestion, mouth pain Respiratory: denies: cough, dry, shortness of breath, hemoptysis, SOB with excertion, pleuritic pain, sputum, wheezing Cardiovascular: denies: chest pain, palpitations, orthopnea, paroxysmal noc. dyspnea, edema, light headedness Gastrointestinal: denies: nausea, vomiting, abdominal pain, diarrhea, constipation - Medication Medications: Active Medications Generic Name Dose Route Start Last Admin Trade Name Jimq PRN Reason Stop Dose Admin Amlodipine Besylate 10 mg 03/06/20 09:00 03/06/20 09:28 Amlodipine 10 Mg Tab PO 10 mg DAILY DRAKE Administration Dexamethasone 4 mg 03/05/20 21:00 03/06/20 09:34 Dexamethasone 4 Mg/Ml Vial SLOW IVP 03/08/20 21:01 4 mg TID DRAKE Administration Enoxaparin Sodium 40 mg 03/02/20 09:00 03/06/20 09:30 Enoxaparin Sodium 40 Mg/0.4 Ml Syringe SC 40 mg 0900 DRAKE Administration Ferrous Sulfate 300 mg 03/06/20 09:00 03/06/20 09:29 Ferrous Sulfate 300 Mg/5 Ml Udcup PO 300 mg DAILY DRAKE Administration Hydralazine HCl 10 mg 03/02/20 15:25 03/04/20 05:27 Hydralazine 20 Mg/Ml Vial SLOW IVP 10 mg Q4H PRN Administration Persistent BP Elevations Sodium Chloride 1,000 mls @ 40 mls/hr 03/02/20 03:45 03/06/20 06:01 Normal Saline 0.9% IV 1,000 mls .Q24H DRAKE Administration Metoprolol Tartrate 25 mg 03/06/20 09:00 03/06/20 09:29 Metoprolol Tartrate 25 Mg Tab PO 25 mg BID DRAKE Administration Mometasone Furoate/Formoterol Fumar 2 puff 03/05/20 18:30 03/05/20 20:16 Mometasone 200 Mcg/Formoterol 5 Mcg 120 Puff Inhaler INH 2 puff BID-RT DRAKE Administration Morphine Sulfate 2 mg 03/02/20 04:13 03/05/20 19:51 Morphine 2 Mg/Ml Vial SLOW IVP 2 mg Q4H PRN Administration Pain Phenol 0 ml 03/04/20 18:07 03/05/20 04:12 Chloraseptic [place] 180 Ml Bottle PO 1 spr TID PRN Administration SORE THROAT Sodium Chloride 10 ml 03/02/20 09:00 03/06/20 09:31 Flush - Normal Saline 10 Ml Syringe IVF 10 ml Q12HR DRAKE Administration - Exam General Appearance: awake alert Heart: RRR, no murmur, no gallops, no rubs, normal peripheral pulses Respiratory: CTAB, no wheezes, no rales, no ronchi, normal chest expansion, no tachypnea, normal percussion Gastrointestinal: soft, non-tender, non-distended, normal bowel sounds, no palpable masses, no hepatomegaly, no splenomegaly, no bruit, no guarding, no rigidity Hosp A/P - Plan Dysphagia Code(s): R13.10 - DYSPHAGIA, UNSPECIFIED Status: Acute (2) Hyponatremia Code(s): E87.1 - HYPO-OSMOLALITY AND HYPONATREMIA Status: Acute 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 -Patient received his treatment from Dr. Salazar in [place]. Stated he was on oral chemo agent, and is no longer working. 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 Adhikari who did the laryngoscopy. Patient will follow up with Dr. Adhikari for further care as an outpatient. -PEG tube placed on . We will consult export packer to start the tube feed. As above right neck mass/pharyngeal mass I talked to the patient after PEG tube placement. He is considering getting the biopsy as well. Will discuss further on before consulting interventional radiologist for the same. hyponatremia, mild--------- renal cell carcinoma with mets - pain management -He is on morphine 2 mg every 4 hrs. Will talk to the interventional radiologist tomorrow for possible neck mass biopsy. Meanwhile will also consult oncologist for their recommendation Patient on tube feed via PEG tube I talked to the daughter over the phone in the patient room at least for 20 minutes. She had lots of questions about the mass in the neck area. Prior to that, I talked with interventional radiologist and biopsy has to be done by ENT while they are doing laryngoscopy. Talk to Dr. Adhikari ENT and they are planning to do the laryngoscopy with biopsy on Thursday, according to him the patient can be sent home. However family is very concerned about his shortness of breath and preferred that he is here until the procedure is completed. Even though I tried to convince them that he does not have any acute shortness of breath, they are worried about him going home and the mass is obstructing his trachea and causing short of breath etc. etc. they also prefer pulmonary consult as well. Placed oncology consult. I talked to the second sister also-- spent over 20 minutes explaining the plan of care all over again. 17th Biopsy of pharyngeal mass and perform a dilation procedure of the esophagus by Dr. Adhikari tomorrow. patient will follow up with oncologist in [place], Dr. Salazar, regarding his metastatic renal cell carcinoma and this has been discussed with the patient and the family. I talked to Dr. Salazar in [place] about his hypopharyngeal mass this morning. After the laryngoscopy biopsy will decide the ED nature of the mass. Area he requires radiation treatment versus surgical resection will be explored as an outpatient setting. Dr. Salazar will notify the patient regarding the future plan. His cell number is [phone]. He is also getting Decadron and Dulera inhaler. Appreciate the help from squeegeer and former as well as Dr. Adhikari. Patient is on tube feed via PEG tube. Care discussed with the student today agreed with the plan.
[2020-03-06] MEDS: Mometasone 200 MCG/Formoterol 5 MCG 120 PUFF INHALER INH SCH ×2 (12:51→19:14)
[2020-03-06] MEDS: Morphine 2 MG/ML VIAL SLOW IVP PRN (22:10)
[2020-03-07] MEDS: Metoprolol Tartrate 25 MG TAB PO SCH ×2 (05:31→20:45)
[2020-03-07] MEDS: Mometasone 200 MCG/Formoterol 5 MCG 120 PUFF INHALER INH SCH ×2 (07:07→19:08)
[2020-03-07] MEDS: Enoxaparin Sodium 40 MG/0.4 ML SYRINGE SC SCH (08:31)
[2020-03-07] MEDS: Dexamethasone 4 mg/ml Vial SLOW IVP SCH ×3 (08:32→20:39)
[2020-03-07] MEDS: Amlodipine 10 MG TAB PO SCH ×2 (08:37→16:55)
[2020-03-07] MEDS ORDERED: Fentanyl 100 MCG/2 ML VIAL ONE ×4 (10:01→13:30)
[2020-03-07] MEDS ORDERED: Rocuronium Bromide 10 MG/ML (10ML VIAL) ONE (10:26)
[2020-03-07] MEDS ORDERED: PROPOFOL 200 MG/20 ML VIAL ONE (10:26)
[2020-03-07] MEDS ORDERED: Dexamethasone 20 MG/5 ML VIAL ONE ×2 (10:26)
[2020-03-07] MEDS ORDERED: Ondansetron PF 4 MG/2 ML Vial ONE (10:26)
[2020-03-07] MEDS ORDERED: Lidocaine 1% PF 5 ML VIAL ONE ×2 (10:26)
[2020-03-07] MEDS ORDERED: Lidocaine 1% w/Epinephrine 1:100K 20 ML VIAL ONE (11:53)
[2020-03-07] MEDS ORDERED: EPINEPHrine 1 MG/ML AMP ONE (11:53)
[2020-03-07] MEDS ORDERED: SUGAMMADEX SODIUM 200 MG/2 ML VIAL ONE (11:59)
[2020-03-07] MEDS ORDERED: SUGAMMADEX SODIUM 500 MG/5 ML VIAL ONE (11:59)
[2020-03-07] MEDS: Morphine 2 MG/ML VIAL SLOW IVP PRN ×2 (15:19→20:40)
--- NOTE | 2020-03-07 16:18 | PRG ---
DATE OF SERVICE: 03/07/2020 SUBJECTIVE: Alejandro Christopher is a 74-year-old gentleman, status post ENT evaluation and an endoscopy procedure with a biopsy. Postop, he has a little bit of hemoptysis. Not much difficulty breathing. OBJECTIVE: VITAL SIGNS: Temperature 97, pulse 60, respirations 16, saturations 96% on room air, blood pressure 165/53. CHEST: Minimal wheezing. CARDIAC: Normal S1 and S2. No gallops. ABDOMEN: No masses. ASSESSMENT AND PLAN: Metastatic carcinoma, status post biopsy. Pulmonary marshall, we will continue present inhalers, Dulera, and supportive care. Pulmonary is going to follow at a distance. Job ID: [id number]
--- NOTE | 2020-03-07 16:48 | PDOC.HOSPP ---
- Subjective Encounter Date: 03/07/20 Encounter Time: 04:30 Subjective: Patient returned from his laryngoscopy. We are going to start him on clindamycin as well as- plan for Gastrografin study tomorrow morning. - Objective Vital Signs & Weight: Vital Signs (12 hours) Temp Pulse Resp BP BP BP Pulse Ox 03/07/20 16:00 97.4 F L 58 L 20 175/69 H 98 03/07/20 14:37 97.5 F L 62 16 165/53 H 96 03/07/20 08:37 51 L 154/65 H 03/07/20 08:00 97.3 F L 97 03/07/20 07:28 97.3 F L 51 L 18 154/65 H 97 Weight Admit Weight 196 lb Weight 196 lb I&O: 03/06/20 03/07/20 03/08/20 06:59 06:59 06:59 Intake Total 2290 4075 0 Balance 2290 4075 0 Result Diagrams: 03/03/20 14:24 03/04/20 05:41 Hospitalist ROS - Medication Medications: Active Medications Generic Name Dose Route Start Last Admin Trade Name Freq PRN Reason Stop Dose Admin Amlodipine Besylate 10 mg 03/06/20 09:00 03/07/20 08:37 Amlodipine 10 Mg Tab PO Not Given DAILY DRAKE Dexamethasone 4 mg 03/05/20 21:00 03/07/20 15:19 Dexamethasone 4 Mg/Ml Vial SLOW IVP 03/08/20 21:01 4 mg TID DRAKE Administration Enoxaparin Sodium 40 mg 03/02/20 09:00 03/07/20 08:31 Enoxaparin Sodium 40 Mg/0.4 Ml Syringe SC Not Given 0900 DRAKE Ferrous Sulfate 300 mg 03/06/20 09:00 03/07/20 10:15 Ferrous Sulfate 300 Mg/5 Ml Udcup PO Not Given DAILY DRAKE Hydralazine HCl 10 mg 03/02/20 15:25 03/04/20 05:27 Hydralazine 20 Mg/Ml Vial SLOW IVP 10 mg Q4H PRN Administration Persistent BP Elevations Sodium Chloride 1,000 mls @ 40 mls/hr 03/02/20 03:45 03/06/20 23:54 Normal Saline 0.9% IV 1,000 mls .Q24H DRAKE Administration Metoprolol Tartrate 25 mg 03/06/20 09:00 03/07/20 05:31 Metoprolol Tartrate 25 Mg Tab PO 25 mg BID DRAKE Administration Mometasone Furoate/Formoterol Fumar 2 puff 03/05/20 18:30 03/07/20 07:07 Mometasone 200 Mcg/Formoterol 5 Mcg 120 Puff Inhaler INH 2 puff BID-RT DRAKE Administration Morphine Sulfate 2 mg 03/02/20 04:13 03/07/20 15:19 Morphine 2 Mg/Ml Vial SLOW IVP 2 mg Q4H PRN Administration Pain Phenol 0 ml 03/04/20 18:07 03/05/20 04:12 Chloraseptic [place] 180 Ml Bottle PO 1 spr TID PRN Administration SORE THROAT Sodium Chloride 10 ml 03/02/20 09:00 03/07/20 08:37 Flush - Normal Saline 10 Ml Syringe IVF 10 ml Q12HR DRAKE Administration - Exam General Appearance: NAD, awake alert Eye: PERRL ENT: normocephalic atraumatic Neck: supple Heart: RRR Respiratory: CTAB, normal chest expansion Gastrointestinal: soft, normal bowel sounds Neurological: no focal deficits Psychiatric: A&O x 3 Hosp A/P - Plan Dysphagia Code(s): R13.10 - DYSPHAGIA, UNSPECIFIED Status: Acute (2) Hyponatremia Code(s): E87.1 - HYPO-OSMOLALITY AND HYPONATREMIA Status: Acute 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 -Patient received his treatment from Dr. Salazar in [place]. Stated he was on oral chemo agent, and is no longer working. 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 Adhikari who did the laryngoscopy. Patient will follow up with Dr. Adhikari for further care as an outpatient. -PEG tube placed on . We will consult lamination builder to start the tube feed. As above right neck mass/pharyngeal mass I talked to the patient after PEG tube placement. He is considering getting the biopsy as well. Will discuss further on before consulting interventional radiologist for the same. hyponatremia, mild--------- renal cell carcinoma with mets - pain management -He is on morphine 2 mg every 4 hrs. 15 Will talk to the interventional radiologist tomorrow for possible neck mass biopsy. Meanwhile will also consult oncologist for their recommendation Patient on tube feed via PEG tube 16 I talked to the daughter over the phone in the patient room at least for 20 minutes. She had lots of questions about the mass in the neck area. Prior to that, I talked with interventional radiologist and biopsy has to be done by ENT while they are doing laryngoscopy. Talk to Dr. Adhikari ENT and they are planning to do the laryngoscopy with biopsy on Thursday, according to him the patient can be sent home. However family is very concerned about his shortness of breath and preferred that he is here until the procedure is completed. Even though I tried to convince them that he does not have any acute shortness of breath, they are worried about him going home and the mass is obstructing his trachea and causing short of breath etc. etc. they also prefer pulmonary consult as well. Placed oncology consult. I talked to the second sister also-- spent over 20 minutes explaining the plan of care all over again. 17th Biopsy of pharyngeal mass and perform a dilation procedure of the esophagus by Dr. Adhikari tomorrow. patient will follow up with oncologist in [place], Dr. Salazar, regarding his metastatic renal cell carcinoma and this has been discussed with the patient and the family. I talked to Dr. Salazar in [place] about his hypopharyngeal mass this morning. After the laryngoscopy biopsy will decide the ED nature of the mass. Area he requires radiation treatment versus surgical resection will be explored as an outpatient setting. Dr. Salazar will notify the patient regarding the future plan. His cell number is [phone]. He is also getting Decadron and Dulera inhaler. Appreciate the help from clinical resource coordinator as well as Dr. Adhikari. Patient is on tube feed via PEG tube. Care discussed with the student today agreed with the plan. 18th Status post laryngoscopy. Plan for Gastrografin study tomorrow Continue with the feed via PEG tube Started clindamycin 900 3 times daily.
[2020-03-07] MEDS: Clindamycin/D5W 900 MG in Premix Bag 1 BAG IVPB SCH (16:49)
[2020-03-07] MEDS: Sodium Chloride 0.9% 1,000 ML IV SCH (16:52)
[2020-03-07] MEDS: Ondansetron PF 4 MG/2 ML Vial IVP PRN (17:10)
[2020-03-08] MEDS: Clindamycin/D5W 900 MG in Premix Bag 1 BAG IVPB SCH ×3 (00:55→16:44)
[2020-03-08] MEDS: Sodium Chloride 0.9% 1,000 ML IV SCH (02:32)
[2020-03-08] MEDS: Morphine 2 MG/ML VIAL SLOW IVP PRN ×5 (02:36→21:35)
[2020-03-08] MEDS: Ondansetron PF 4 MG/2 ML Vial IVP PRN (02:40)
[2020-03-08] MEDS: Mometasone 200 MCG/Formoterol 5 MCG 120 PUFF INHALER INH SCH ×2 (07:02→19:09)
[2020-03-08] MEDS: Amlodipine 10 MG TAB PO SCH (08:32)
[2020-03-08] MEDS: Dexamethasone 4 mg/ml Vial SLOW IVP SCH ×3 (08:32→20:33)
[2020-03-08] MEDS: Metoprolol Tartrate 25 MG TAB PO SCH ×2 (08:35→20:33)
[2020-03-08] MEDS: Enoxaparin Sodium 40 MG/0.4 ML SYRINGE SC SCH (08:35)
--- NOTE | 2020-03-08 10:08 | RAD ---
Esophagram HISTORY: Throat mass. Recent biopsy. FINDINGS: Correlated with modified barium swallow from 1113. FINDINGS: Initial swallows were with Gastrografin. Thin barium was also used. There is delay in initiation of swallowing with large amount of pooling in the valleculae. With swall owing, no eversion of the esophagus is visible. Deep penetration and eventual aspiration was present. Large amount of pooling in the valleculae and piriform sinuses. No contrast was seen to extend posteriorly from the upper esophagus into the mediastinum. Postprocedu re radiographs showed no significant residual contrast in the airway or mediastinum. Significant residual within the valleculae and piriform sinuses. Remainder of the esophagus shows no evidence of obstruction, although limited amount of contrast prec ludes good evaluation of the mucosa. IMPRESSION : No evidence of esophageal obstruction or leak. Hypopharyngeal mass inhibited swallowing and limits contrast bolus. This was better evaluated on rece nt modified barium swallow.
--- NOTE | 2020-03-08 11:34 | PDOC.HOSPP ---
- Subjective Encounter Date: 03/08/20 Encounter Time: 11:40 Subjective: Patient was seen and examined at the bedside. Patient reports a sore throat and some abdominal pain. No other complaints noted. - Objective Vital Signs & Weight: Vital Signs (12 hours) Temp Pulse Resp BP BP BP Pulse Ox 03/08/20 08:32 60 136/64 03/08/20 07:15 97.4 F L 60 18 136/64 95 03/08/20 04:00 97.8 F 58 L 18 150/63 H 96 Weight Admit Weight 196 lb Weight 196 lb I&O: 03/07/20 03/08/20 03/09/20 06:59 06:59 06:59 Intake Total 4075 1270 Balance 4075 1270 Result Diagrams: 03/03/20 14:24 03/04/20 05:41 Hospitalist ROS - Review of Systems ENT: reports: throat pain Respiratory: denies: cough, dry, shortness of breath, hemoptysis, SOB with excertion, pleuritic pain, sputum, wheezing Cardiovascular: denies: chest pain, palpitations, orthopnea, paroxysmal noc. dyspnea, edema Gastrointestinal: denies: nausea, vomiting, abdominal pain, diarrhea, constipation - Medication Medications: Active Medications Generic Name Dose Route Start Last Admin Trade Name Freq PRN Reason Stop Dose Admin Amlodipine Besylate 10 mg 03/06/20 09:00 03/08/20 08:32 Amlodipine 10 Mg Tab PO 10 mg DAILY DRAKE Administration Dexamethasone 4 mg 03/05/20 21:00 03/08/20 08:32 Dexamethasone 4 Mg/Ml Vial SLOW IVP 03/08/20 21:01 4 mg TID DRAKE Administration Enoxaparin Sodium 40 mg 03/02/20 09:00 03/08/20 08:35 Enoxaparin Sodium 40 Mg/0.4 Ml Syringe SC 40 mg 0900 DRAKE Administration Ferrous Sulfate 300 mg 03/06/20 09:00 03/08/20 08:32 Ferrous Sulfate 300 Mg/5 Ml Udcup PO 300 mg DAILY DRAKE Administration Hydralazine HCl 10 mg 03/02/20 15:25 03/04/20 05:27 Hydralazine 20 Mg/Ml Vial SLOW IVP 10 mg Q4H PRN Administration Persistent BP Elevations Sodium Chloride 1,000 mls @ 40 mls/hr 03/02/20 03:45 03/08/20 02:32 Normal Saline 0.9% IV 1,000 mls .Q24H DRAKE Administration Clindamycin Phosphate/Dextrose 50 mls @ 100 mls/hr 03/07/20 17:00 03/08/20 08:38 900 mg/ Device IVPB 50 mls 0100,0900,1700 DRAKE Administration Metoprolol Tartrate 25 mg 03/06/20 09:00 03/08/20 08:35 Metoprolol Tartrate 25 Mg Tab PO 25 mg BID DRAKE Administration Mometasone Furoate/Formoterol Fumar 2 puff 03/05/20 18:30 03/08/20 07:02 Mometasone 200 Mcg/Formoterol 5 Mcg 120 Puff Inhaler INH 2 puff BID-RT DRAKE Administration Morphine Sulfate 2 mg 03/02/20 04:13 03/08/20 08:32 Morphine 2 Mg/Ml Vial SLOW IVP 2 mg Q4H PRN Administration Pain Ondansetron HCl 4 mg 03/02/20 03:41 03/08/20 02:40 Ondansetron Pf 4 Mg/2 Ml Vial IVP 4 mg Q6H PRN Administration Nausea/Vomiting Phenol 0 ml 03/04/20 18:07 03/05/20 04:12 Chloraseptic [place] 180 Ml Bottle PO 1 spr TID PRN Administration SORE THROAT Sodium Chloride 10 ml 03/02/20 09:00 03/08/20 08:36 Flush - Normal Saline 10 Ml Syringe IVF 10 ml Q12HR DRAKE Administration - Exam General Appearance: awake alert Heart: RRR, no murmur, no gallops, no rubs, normal peripheral pulses Respiratory: CTAB, no wheezes, no rales, no ronchi, normal chest expansion, no tachypnea, normal percussion Gastrointestinal: soft, non-distended, normal bowel sounds, no palpable masses, no hepatomegaly, no splenomegaly, no bruit, no guarding, tender to palpation (has midline abdominal pain from PEG tube placement) Hosp A/P - Plan Dysphagia Code(s): R13.10 - DYSPHAGIA, UNSPECIFIED Status: Acute (2) Hyponatremia Code(s): E87.1 - HYPO-OSMOLALITY AND HYPONATREMIA Status: Acute 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 -Patient received his treatment from Dr. Salazar in [place]. Stated he was on oral chemo agent, and is no longer working. 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 Adhikari who did the laryngoscopy. Patient will follow up with Dr. Adhikari for further care as an outpatient. -PEG tube placed on . We will consult child center assistant to start the tube feed. As above right neck mass/pharyngeal mass I talked to the patient after PEG tube placement. He is considering getting the biopsy as well. Will discuss further on before consulting interventional radiologist for the same. hyponatremia, mild--------- renal cell carcinoma with mets - pain management -He is on morphine 2 mg every 4 hrs. Will talk to the interventional radiologist tomorrow for possible neck mass biopsy. Meanwhile will also consult oncologist for their recommendation Patient on tube feed via PEG tube 16 I talked to the daughter over the phone in the patient room at least for 20 minutes. She had lots of questions about the mass in the neck area. Prior to that, I talked with interventional radiologist and biopsy has to be done by ENT while they are doing laryngoscopy. Talk to Dr. Adhikari ENT and they are planning to do the laryngoscopy with biopsy on Thursday, according to him the patient can be sent home. However family is very concerned about his shortness of breath and preferred that he is here until the procedure is completed. Even though I tried to convince them that he does not have any acute shortness of breath, they are worried about him going home and the mass is obstructing his trachea and causing short of breath etc. etc. they also prefer pulmonary consult as well. Placed oncology consult. I talked to the second sister also-- spent over 20 minutes explaining the plan of care all over again. 17 Biopsy of pharyngeal mass and perform a dilation procedure of the esophagus by Dr. Adhikari tomorrow. patient will follow up with oncologist in [place], Dr. Salazar, regarding his met astatic renal cell carcinoma and this has been discussed with the patient and the family. I talked to Dr. Salazar in [place] about his hypopharyngeal mass this morning. After the laryngoscopy biopsy will decide the ED nature of the mass. Area he requires radiation treatment versus surgical resection will be explored as an outpatient setting. Dr. Salazar will notify the patient regarding the future plan. His cell number is [phone]. He is also getting Decadron and Dulera inhaler. Appreciate the help from campaign coordinator as well as Dr. Adhikari. Patient is on tube feed via PEG tube. Care discussed with the student today agreed with the plan. 18th Status post laryngoscopy. Plan for Gastrografin study tomorrow Continue with the feed via PEG tube Started clindamycin 900 3 times daily. 19th Status post op day 1 from laryngoscopy Gastrografin study performed this morning-------------> report came back later it showed no leakage. Patient getting Decadron IV 3 times a day I believe he would benefit with few more doses before going home as he still has throat discomfort. -Also will wait for Dr. Darling's input about discharge with prednisone or Decadron Continue with the feed via PEG tube Will continue clindamycin 900 3 times daily for one more day. He needs to be n.p.o. for 2 more weeks. After ENT evaluation in the clinic then consideration for speech evaluation to be pursued. Care discussed with the student and agree with the above plan.
--- NOTE | 2020-03-08 13:40 | PDOC.DS.DS ---
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 -Patient received his treatment from Dr. Salazar in [place]. Stated he was on oral chemo agent, and is no longer working. 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 Adhikari did the laryngoscopy. -PEG tube placed on . Biopsy of pharyngeal mass and perform a dilation procedure of the esophagus by Dr. Adhikari on . patient will follow up with oncologist in [place], Dr. Salazar, regarding his metastatic renal cell carcinoma and this has been discussed with the patient and the family. I talked to Dr. 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 Salazar will notify the patient regarding the future plan. His cell number is [phone]. Status post laryngoscopy on . Gastrografin study --performed on no esophageal leak Continue with the feed via PEG tube Will continue clindamycin 900 3 times daily for 7 days He needs to be n.p.o. for 2 more weeks. He will follow with Dr. Adhikari in the clinic, after ENT evaluation in the clinic, then consideration for speech evaluation to be pursued. Discharge time over 30-minutes. Resuscitation Status: 03/02/20 03:41 Resuscitation Status Routine Resuscitation Status: FULL: Full Resuscitation - Labs Lab Results: 03/03/20 14:24 03/04/20 05:41 - Physical Exam Vitals: Vital Signs (12 hours) Temp Pulse Resp BP BP BP Pulse Ox 03/08/20 08:32 60 136/64 03/08/20 08:00 95 03/08/20 07:15 97.4 F L 60 18 136/64 95 03/08/20 04:00 97.8 F 58 L 18 150/63 H 96 Weight Admit Weight 196 lb Weight 196 lb Physical Exam: The patient was seen and examined on the day of discharge. Plan - Discharge Medications Prescriptions: Clindamycin [Cleocin] 600 mg PO TID 7 Days #21 cap Home Medications: Medication Instructions Recorded Confirmed Type Amlodipine [Norvasc] 10 mg PO DAILY 30 Days #30 tab 03/08/20 Rx Clindamycin [Cleocin] 600 mg PO TID 7 Days #21 cap 03/08/20 Rx Lactose-Reduced Food/Fiber [Jevity 237 ml PO QID 30 Days #240 liquid 03/08/20 Rx 1.5 Erwin Liquid] Mometasone/Formoterol [Dulera 200 8.8 gm IH BID 30 Days #3 hfa.aer.ad 03/08/20 Rx Mcg-5 Mcg Inhaler] Allergies: No Known Allergies Allergy (Verified 01/04/20 12:25) - Discharge Instructions Discharge Instructions:: With PCP in 1 week. Follow-up with ENT Dr. Adhikari in 1 week for the biopsy result Follow-up with Dr. Salazar in [place] per their clinic appointment Follow-up with Dr. Colby Torres as needed if you have more discomfort in your throat or short of breath. Activity:: Activity as Tolerated Nourishment:: Tube Feeding Diet - Follow up Plan Referrals: Kirk Fernando MD [Primary Care Provider] - Disposition: HOME Quality - Care Measures CORE MEASURES:: N/A
--- NOTE | 2020-03-08 14:14 | OP ---
DATE OF PROCEDURE: 03/07/2020 PREOPERATIVE DIAGNOSES: 1. Hypopharyngeal mass. 2. Dysphagia. POSTOPERATIVE DIAGNOSIS: 1. Hypopharyngeal mass. 2. Dysphagia. PROCEDURES PERFORMED: 1. Direct laryngoscopy with biopsy. 2. Partial laryngectomy/Zenker's diverticulectomy. ESTIMATED BLOOD LOSS: Less than 5 mL. COMPLICATIONS: None. ANESTHESIA: GETA. DESCRIPTION OF PROCEDURE: The patient was taken to the operating room and placed on the table. General endotracheal anesthesia was obtained by the Anesthesia Staff. The tube was secured in the left lower lip. The head of bed was turned 90 degrees. A shoulder roll was placed. The head was positioned in gentle extension supporting the head and neck. The Dedo laryngoscope was introduced into the oral cavity and the tongue base, epiglottis, and laryngeal structures were all noted to be within normal limits. On elevation of the larynx anteriorly, an excessive amount of redundant and edematous tissue was noticed in the postcricoid mucosal area. This was extended into the upper esophagus. There was erosion in the center point of this excessive mucosa possibly due from an anterior osteophyte. The erosion was allowed for exposure of the posterior cricoid cartilage. Biopsies were taken of the cricoid cartilage and this area. This excessive amount of tissue was obliterating and obstructing the esophageal inlet. The patient was placed in suspension and a 0-degree endoscope was used to visualize the mucosa as forceps were used to grasp the extra mucosa and pull it away from the postcricoid area. The laparoscopic NELI stapler was then used to excise and reapproximate the mucosa of this excessive tissue. A total of 3 carine were fired to complete excision and LigaSure of this mucosa. The mucosa was then inspected and was noted to be sealed. The specimen was sent for pathological analysis. The patient tolerated the procedure well and was awaken from anesthesia without any airway complications. Job ID: [id number]
[2020-03-08] MEDS ORDERED: GASTROGRAFIN 30 ML BOT ONE (14:49)
[2020-03-08] MEDS: Loperamide HCl 2 MG CAP PO PRN ×2 (17:45→20:35)
[2020-03-09] MEDS: Clindamycin/D5W 900 MG in Premix Bag 1 BAG IVPB SCH ×2 (01:02→09:15)
[2020-03-09] MEDS: Morphine 2 MG/ML VIAL SLOW IVP PRN ×4 (01:09→13:14)
[2020-03-09] MEDS: Mometasone 200 MCG/Formoterol 5 MCG 120 PUFF INHALER INH SCH (07:00)
[2020-03-09] MEDS: Loperamide HCl 2 MG CAP PO PRN (09:14)
[2020-03-09] MEDS: Metoprolol Tartrate 25 MG TAB PO SCH (09:14)
[2020-03-09] MEDS: Enoxaparin Sodium 40 MG/0.4 ML SYRINGE SC SCH (09:15)
[2020-03-09] MEDS: Amlodipine 10 MG TAB PO SCH (09:19)
[2020-03-09 11:21] VITALS: BP 127/63; TEMP 96.8
--- NOTE | 2020-03-09 11:46 | PDOC.DS.DS ---
Provider - Provider Date of Admission: 03/04/20 16:21 Admitting Provider: Kailash Murrieta Primary Care Physician: Kirk Fernando, Course - Hospital Course Hospital Course: Please see previous discharge summary that I dictated yesterday. departure from the hospital delayed due to pt wants to have a suction cup prior to going home plus wants to pharmacy picking tech his medic pain medications at the pharmacy. systems project manager is arranging today to get the suction cup. Will be likely leaving today. Resuscitation Status: 03/02/20 03:41 Resuscitation Status Routine Resuscitation Status: FULL: Full Resuscitation - Labs Lab Results: 03/03/20 14:24 03/04/20 05:41 - Physical Exam Vitals: Vital Signs (12 hours) Temp Pulse Resp BP BP Pulse Ox 03/09/20 11:00 96.8 F L 55 L 18 127/63 97 03/09/20 09:19 57 L 155/68 H 03/09/20 08:00 99 03/09/20 07:20 97.4 F L 57 L 18 155/68 H 99 Weight Admit Weight 196 lb Weight 196 lb Physical Exam: The patient was seen and examined on the day of discharge. Patient's departure from the hospital dilated due to he wants to have a suction cup last evening plus wants to pharmacy picking tech his medic pain medications at the pharmacy. systems project manager is arranging today to get the suction cup. Will be likely leaving today. Plan - Discharge Medications Prescriptions: Clindamycin [Cleocin] 600 mg PO TID 7 Days #21 cap Mometasone/Formoterol [Dulera 200 Mcg-5 Mcg Inhaler] 8.8 gm IH BID 30 Days #3 hfa.aer.ad Lactose-Reduced Food/Fiber [Jevity 1.5 Erwin Liquid] 237 ml PO QID 30 Days #240 liquid Home Medications: Medication Instructions Recorded Confirmed Type Clindamycin [Cleocin] 600 mg PO TID 7 Days #21 cap 03/08/20 Rx Lactose-Reduced Food/Fiber [Jevity 237 ml PO QID 30 Days #240 liquid 03/08/20 Rx 1.5 Erwin Liquid] Mometasone/Formoterol [Dulera 200 8.8 gm IH BID 30 Days #3 hfa.aer.ad 03/08/20 Rx Mcg-5 Mcg Inhaler] Atorvastatin Calcium 10 mg PO DAILY 03/09/20 03/09/20 History Baclofen 10 mg PO HS PRN 03/09/20 03/09/20 History Losartan Potassium 100 mg PO DAILY 03/09/20 03/09/20 History Metoprolol Succinate [Toprol Xl] 50 mg PO DAILY 03/09/20 03/09/20 History Pantoprazole [Protonix] 40 mg PO DAILY 03/09/20 03/09/20 History Allergies: No Known Allergies Allergy (Verified 01/04/20 12:25) - Discharge Instructions Discharge Instructions:: With PCP in 1 week. Follow-up with Dr. Salazar in [place] per their clinic appointment Activity:: Activity as Tolerated Nourishment:: Tube Feeding Diet Additional Dietary Instructions:: via tube feed - Follow up Plan Referrals: Brian Darling MD [Active] - (as needed if you have more discomfort in your throat or short of breath) Vipul Adhikari MD [Active] - ( in 1 week for the biopsy result) Disposition: HOME Quality - Care Measures CORE MEASURES:: N/A
--- NOTE | 2020-03-09 12:34 | PRG ---
DATE OF SERVICE: 03/09/2020 SUBJECTIVE: This morning, he is doing better. OBJECTIVE: VITAL SIGNS: Temperature 96, pulse 55, blood pressure 150/68, respiratory rate 18, sats 96% on room air. He is going to be discharged home. CHEST: Occasional wheezing. CARDIAC: Normal S1, S2. No gallops. ABDOMEN: No masses. ASSESSMENT: 1. Chronic obstructive pulmonary disease, asthma, stable. 2. 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 It apparently did not have any tumor in it. PLAN: He can be discharged home on inhaler. Does not need any additional steroids. Follow up with his oncologist. Job ID: [id number]
== END 2020-03-09 14:19 | disposition home or self-care (01) | DRG 144 ==
LOC: ERS 23:36 → T4-B 03-02 03:33 → OBSVTOIN 03-04 16:21
PROVIDERS: ADMIT Internal Medicine; ATTEND Internal Medicine
PROC: 0DH63UZ Insertion of Feeding Device into Stomach, Percutaneous Approach (ICD-10-PCS; 2020-03-03)
PROC: 3E0G76Z Introduction of Nutritional Substance into Upper GI, Via Natural or Artificial Opening (ICD-10-PCS; 2020-03-03)
PROC: 0K844ZZ Division of Tongue, Palate, Pharynx Muscle, Percutaneous Endoscopic Approach (ICD-10-PCS; principal; 2020-03-07)
PROC: 0CBS8ZX Excision of Larynx, Via Natural or Artificial Opening Endoscopic, Diagnostic (ICD-10-PCS; 2020-03-07)
DX: J39.2 Other diseases of pharynx (principal); C64.9 Malignant neoplasm of unspecified kidney, except renal pelvis; E87.1 Hypo-osmolality and hyponatremia; C78.00 Secondary malignant neoplasm of unspecified lung; C79.51 Secondary malignant neoplasm of bone; C78.89 Secondary malignant neoplasm of other digestive organs; R13.12 Dysphagia, oropharyngeal phase; E11.9 Type 2 diabetes mellitus without complications; I10 Essential (primary) hypertension; J44.9 Chronic obstructive pulmonary disease, unspecified; E78.5 Hyperlipidemia, unspecified; R59.0 Localized enlarged lymph nodes; Z90.5 Acquired absence of kidney; Z92.21 Personal history of antineoplastic chemotherapy
CPT/HCPCS: 36415; 36416; 70491; 74220; 74230; 80048; 83930; 84443; 85007; 85025; 85027; 88305; 96372; 96374; 96375; 96376; G0378; J0171; J0360; J0690; J1100; J1650; J2270; J2405; J2704; J3010; J3490; Q9963

== ENCOUNTER 2020-11-07 09:55 | Day surgery (SDC) | payer MEDICARE, OTHER ==
[2020-11-06 15:04] VITALS: BMI 31.4
== END 2020-11-07 12:56 | disposition home or self-care (01) ==
LOC: SDC 09:55
PROVIDERS: ATTEND Otolaryngology Plastic Surgery within the Head & Neck
PROC: 0CBM8ZX Excision of Pharynx, Via Natural or Artificial Opening Endoscopic, Diagnostic (ICD-10-PCS; principal; 2020-11-07)
DX: J39.2 Other diseases of pharynx (principal); J31.2 Chronic pharyngitis; K22.5 Diverticulum of esophagus, acquired; K08.9 Disorder of teeth and supporting structures, unspecified; J38.01 Paralysis of vocal cords and larynx, unilateral; E11.9 Type 2 diabetes mellitus without complications; I10 Essential (primary) hypertension; Z85.01 Personal history of malignant neoplasm of esophagus; Z85.528 Personal history of other malignant neoplasm of kidney; Z87.891 Personal history of nicotine dependence; Z79.899 Other long term (current) drug therapy; Z91.048 Other nonmedicinal substance allergy status; Z92.21 Personal history of antineoplastic chemotherapy
CPT/HCPCS: 80048; 85014; 85018; 88305; J0171; J1100; J2405; J2704; J3010

== ENCOUNTER 2021-10-02 11:12 | Outpatient (CLI) | payer MEDICARE, OTHER | END 2021-10-02 11:13 | disposition home or self-care (01) | LOC: LABBT 11:12 | PROVIDERS: ATTEND Internal Medicine | DX: R13.10 Dysphagia, unspecified (principal); Z20.822 Contact with and (suspected) exposure to COVID-19 | CPT/HCPCS: U0003; U0005 ==

== ENCOUNTER 2021-10-07 06:55 | Day surgery (SDC) | payer MEDICARE ==
[2021-10-02 09:43] VITALS: BMI 34.2
[2021-10-07] MEDS ORDERED: fentaNYL Citrate/PF 100 MCG/2 ML SYRINGE ONE (07:52)
[2021-10-07] MEDS ORDERED: PROPOFOL 200 MG/20 ML VIAL ONE (09:14)
== END 2021-10-07 10:21 | disposition home or self-care (01) ==
LOC: SDC 06:55
PROVIDERS: ATTEND Internal Medicine
PROC: 0D758ZZ Dilation of Esophagus, Via Natural or Artificial Opening Endoscopic (ICD-10-PCS; principal; 2021-10-07)
DX: R13.10 Dysphagia, unspecified (principal); I10 Essential (primary) hypertension; C64.1 Malignant neoplasm of right kidney, except renal pelvis; Z87.891 Personal history of nicotine dependence; Z79.82 Long term (current) use of aspirin; Z79.899 Other long term (current) drug therapy; Z91.040 Latex allergy status
CPT/HCPCS: J1642

== ENCOUNTER 2021-11-21 11:24 | Emergency (ER) | payer MEDICARE, OTHER ==
[2021-11-21] MEDS ORDERED: Iopamidol-370 76% 500 ML 1 ML ONE (11:28)
[2021-11-21 13:54] LABS: #Eosinphils 0.2 thou/uL (0.0-0.7); #Monocytes 0.2 thou/uL (0.11-0.59); #Neutrophils 2.3 thou/uL (1.40-6.50); %Basophils 0.9 % (0.0-1.0); %Lymphocytes 25.9 % (21.0-51.0); %Monocytes 6.5 % (0.0-10.0); %Neutrophils 62.6 % (42.0-75.0); Hemoglobin 10.9 g/dL (14.0-18.0); Mean Corpuscular HGB CONC 33.2 g/dL (32.0-36.0); Mean Corpuscular Hemoglobin 27.8 pg (27.0-31.0); Mean Corpuscular Volume 83.7 fL (78.0-98.0); Mean Platelet Volume 6.8 fL (7.4-10.4); Platelet Count 237 thou/uL (130-400); RBC Distribution Width 14.7 % (11.5-14.5); Red Blood Cell (RBC) Count 3.91 mill/uL (4.70-6.10); White Blood Cell (WBC) Count 3.7 thou/uL (4.8-10.8)
[2021-11-21 14:18] LABS: ALT (SGPT) 27 U/L (8-55); AST (SGOT) 29 U/L (5-34); Albumin 3.9 g/dL (3.4-4.8); Alkaline Phosphatase 166 U/L (40-110); Anion Gap 13 mmol/L (10-20); BUN (Urea Nitrogen) 14 mg/dL (8.4-25.7); Bilirubin, Total Less than 0.2 mg/dL (0.2-1.2); Calc. Creatinine Clearance 0 mL/min (70-130); Carbon Dioxide 25 mmol/L (23-31); Chloride 98 mmol/L (98-107); Estimated GFR 85; Globulin 2.9 g/dL (2.4-3.5); Glucose 85 mg/dL (83-110); Potassium 4.6 mmol/L (3.5-5.1); Protein, Total 6.8 g/dL (5.8-8.1); Sodium 131 mmol/L (136-145)
== END 2021-11-21 15:58 | disposition home or self-care (01) ==
LOC: ERS 11:24
DX: I10 Essential (primary) hypertension (principal); R79.89 Other specified abnormal findings of blood chemistry; E11.9 Type 2 diabetes mellitus without complications; Z85.53 Personal history of malignant neoplasm of renal pelvis; Z85.01 Personal history of malignant neoplasm of esophagus; Z79.82 Long term (current) use of aspirin; Z79.899 Other long term (current) drug therapy
CPT/HCPCS: 36415; 71275; 80053; 83880; 84484; 85025; 93005; Q9967

== ENCOUNTER 2021-11-28 14:06 | Emergency (ER) | payer MEDICARE ==
[2021-11-28] MEDS ORDERED: Iopamidol-370 76% 500 ML 1 ML ONE (14:31)
[2021-11-28 17:17] LABS: #Eosinphils 0.1 thou/uL (0.0-0.7); #Lymphocytes 0.9 thou/uL (1.20-3.40); #Monocytes 0.2 thou/uL (0.11-0.59); #Neutrophils 3.9 thou/uL (1.40-6.50); %Basophils 0.3 % (0.0-1.0); %Eosinophils 2.4 % (0.0-10.0); %Lymphocytes 16.7 % (21.0-51.0); %Neutrophils 76.6 % (42.0-75.0); Hemoglobin 11.8 g/dL (14.0-18.0); Mean Corpuscular HGB CONC 33.4 g/dL (32.0-36.0); Mean Corpuscular Hemoglobin 27.2 pg (27.0-31.0); Mean Corpuscular Volume 81.4 fL (78.0-98.0); Mean Platelet Volume 7.1 fL (7.4-10.4); Platelet Count 251 thou/uL (130-400); RBC Distribution Width 15.1 % (11.5-14.5); Red Blood Cell (RBC) Count 4.34 mill/uL (4.70-6.10); White Blood Cell (WBC) Count 5.1 thou/uL (4.8-10.8)
[2021-11-28] MEDS ORDERED: Ketorolac Tromethamine 30 MG/ML VIAL ONE (17:17)
[2021-11-28 17:41] LABS: ALT (SGPT) 35 U/L (8-55); AST (SGOT) 43 U/L (5-34); Albumin 4.1 g/dL (3.4-4.8); Alkaline Phosphatase 201 U/L (40-110); Anion Gap 15 mmol/L (10-20); BUN (Urea Nitrogen) 18 mg/dL (8.4-25.7); Bilirubin, Total 0.2 mg/dL (0.2-1.2); Calc. Creatinine Clearance 0 mL/min (70-130); Calcium 8.6 mg/dL (7.8-10.44); Carbon Dioxide 24 mmol/L (23-31); Chloride 94 mmol/L (98-107); Estimated GFR 70; Globulin 2.6 g/dL (2.4-3.5); Glucose 87 mg/dL (83-110); Lipase 27 U/L (8-78); Potassium 4.1 mmol/L (3.5-5.1); Protein, Total 6.7 g/dL (5.8-8.1); Sodium 129 mmol/L (136-145)
== END 2021-11-28 19:37 | disposition home or self-care (01) ==
LOC: ERS 14:06
DX: I31.3 Pericardial effusion (noninflammatory) (principal); M54.9 Dorsalgia, unspecified; I10 Essential (primary) hypertension; E11.9 Type 2 diabetes mellitus without complications; Z79.899 Other long term (current) drug therapy; Z79.82 Long term (current) use of aspirin; Z85.01 Personal history of malignant neoplasm of esophagus; Z85.520 Personal history of malignant carcinoid tumor of kidney
CPT/HCPCS: 36415; 71046; 71275; 80053; 83690; 83880; 84484; 85025; 93005; 96374; J1885; Q9967

== ENCOUNTER 2022-06-20 08:22 | Outpatient (CLI) | payer MEDICARE | END 2022-06-20 08:23 | disposition home or self-care (01) | LOC: BICRAD 08:22 | PROVIDERS: ATTEND Internal Medicine Medical Oncology | DX: C64.2 Malignant neoplasm of left kidney, except renal pelvis (principal) ==

== ENCOUNTER 2022-07-24 12:11 | Emergency (ER) | payer MEDICARE ==
[2022-07-24] MEDS ORDERED: Ondansetron PF 4 MG/2 ML Vial ONE (12:54)
[2022-07-24 13:21] LABS: #Eosinphils 0.3 thou/uL (0.0-0.7); #Lymphocytes 0.5 thou/uL (1.20-3.40); #Monocytes 0.2 thou/uL (0.11-0.59); #Neutrophils 3.2 thou/uL (1.40-6.50); %Lymphocytes 11.4 % (21.0-51.0); %Neutrophils 76.6 % (42.0-75.0); Hemoglobin 10.4 g/dL (14.0-18.0); Mean Corpuscular HGB CONC 33.6 g/dL (32.0-36.0); Mean Corpuscular Hemoglobin 31.8 pg (27.0-31.0); Mean Corpuscular Volume 94.7 fl (78.0-98.0); Platelet Count 139 10x3/uL (130-400); Red Blood Cell (RBC) Count 3.27 mill/uL (4.70-6.10); White Blood Cell (WBC) Count 4.1 10x3/uL (4.8-10.8)
[2022-07-24 13:51] LABS: ALT (SGPT) 35 U/L (8-55); AST (SGOT) 31 U/L (5-34); Albumin 3.6 g/dL (3.4-4.8); Alkaline Phosphatase 116 U/L (40-110); Anion Gap 11 mmol/L (10-20); BUN (Urea Nitrogen) 18 mg/dL (8.4-25.7); Bilirubin, Total 0.5 mg/dL (0.2-1.2); Calc. Creatinine Clearance 0 mL/min (70-130); Calcium 8.1 mg/dL (7.8-10.44); Carbon Dioxide 26 mmol/L (23-31); Chloride 102 mmol/L (98-107); Estimated GFR 41; Globulin 2.2 g/dL (2.4-3.5); Glucose 107 mg/dL (83-110); Lipase Less than 4 U/L (8-78); Potassium 3.7 mmol/L (3.5-5.1); Protein, Total 5.8 g/dL (5.8-8.1); Sodium 135 mmol/L (136-145)
[2022-07-24 15:09] LABS: Bilirubin Negative (Negative); Blood, Urine Negative (Negative); Clarity Clear (Clear); Glucose, Urine (Dipstick) Normal (Negative); Ketone, Urine Negative (Negative); Leukocyte Negative Leu/uL (Negative); Nitrite Negative (Negative); Protein, Urine (Dipstick) Negative (Neg-Trace); Specific Gravity, Urine 1.006 (1.002-1.036); Urobilinogen Normal mg/dL (Less than 2)
== END 2022-07-24 16:58 | disposition home or self-care (01) ==
LOC: ERS 12:11
DX: N13.1 Hydronephrosis with ureteral stricture, not elsewhere classified (principal); R11.2 Nausea with vomiting, unspecified; E11.9 Type 2 diabetes mellitus without complications; I10 Essential (primary) hypertension; Z85.528 Personal history of other malignant neoplasm of kidney; Z85.01 Personal history of malignant neoplasm of esophagus; Z79.82 Long term (current) use of aspirin; Z79.899 Other long term (current) drug therapy
CPT/HCPCS: 36415; 74177; 80053; 81003; 83690; 85025; 93005; 96361; 96374; J2405

== ENCOUNTER → 2022-07-30 | Day surgery (SDC) | payer MEDICARE ==
[~2022-07-30] MED LIST changes: -Iopamidol 370 76% 100 ML VIAL ONE; +Lidocaine 1% PF 5 ML VIAL ONE; +Midazolam HCl 2 mg/2 ml Vial ONE; +Sodium Bicarbonate 2.5 MEQ/5 ML VIAL ONE; +cefTRIAXone\\ROCEPHIN 1 GM in Sodium Chloride 0.9% 100 ML IVPB SCH; +fentaNYL 50 mcg/mL 1 mL Vial ONE
[2022-07-30 07:20] LABS: #Eosinphils 0.3 thou/uL (0.0-0.7); #Lymphocytes 0.5 thou/uL (1.20-3.40); #Monocytes 0.3 thou/uL (0.11-0.59); %Basophils 0.5 % (0.0-1.0); %Eosinophils 8.1 % (0.0-10.0); %Lymphocytes 11.6 % (21.0-51.0); %Monocytes 6.5 % (0.0-10.0); %Neutrophils 73.4 % (42.0-75.0); Hemoglobin 10.6 g/dL (14.0-18.0); Mean Corpuscular HGB CONC 34.7 g/dL (32.0-36.0); Mean Corpuscular Hemoglobin 32.8 pg (27.0-31.0); Mean Corpuscular Volume 94.5 fl (78.0-98.0); Mean Platelet Volume 7.4 fL (7.4-10.4); Platelet Count 145 10x3/uL (130-400); RBC Distribution Width 15.8 % (11.5-14.5); Red Blood Cell (RBC) Count 3.21 mill/uL (4.70-6.10); White Blood Cell (WBC) Count 4.1 10x3/uL (4.8-10.8)
[2022-07-30 07:31] LABS: INR-International Normal Ratio 1.1; PTT 32.3 sec (22.9-36.1); Prothrombin Time 14.4 sec (12.0-14.7)
[2022-07-30 08:33] VITALS: BMI 36.7
[2022-07-30 09:20] VITALS: BP 163/77; TEMP 97.6
== END | disposition home or self-care (01) ==
LOC: SPEC 07:02
PROC: 0T9030Z Drainage of Right Kidney with Drainage Device, Percutaneous Approach (ICD-10-PCS; principal; 2022-07-30)
DX: N13.30 Unspecified hydronephrosis (principal); C64.2 Malignant neoplasm of left kidney, except renal pelvis; C79.51 Secondary malignant neoplasm of bone; N40.1 Benign prostatic hyperplasia with lower urinary tract symptoms; Z79.2 Long term (current) use of antibiotics; Z79.82 Long term (current) use of aspirin; Z79.890 Hormone replacement therapy; Z79.899 Other long term (current) drug therapy; Z91.040 Latex allergy status; Z90.5 Acquired absence of kidney
CPT/HCPCS: 36415; 75984; 77002; 85025; 85610; 85730; C1729; J0696; J2250; J3010; J3490

== ENCOUNTER 2022-08-01 18:49 | Emergency (ER) | payer MEDICARE ==
[2022-08-01 20:22] LABS: #Eosinphils 0.2 thou/uL (0.0-0.7); #Lymphocytes 0.5 thou/uL (1.20-3.40); #Monocytes 0.2 thou/uL (0.11-0.59); #Neutrophils 2.2 thou/uL (1.40-6.50); %Basophils 0.3 % (0.0-1.0); %Eosinophils 7.6 % (0.0-10.0); %Lymphocytes 15.2 % (21.0-51.0); %Monocytes 7.7 % (0.0-10.0); %Neutrophils 69.3 % (42.0-75.0); Hemoglobin 10.1 g/dL (14.0-18.0); Mean Corpuscular Hemoglobin 32.4 pg (27.0-31.0); Mean Corpuscular Volume 95.3 fl (78.0-98.0); Mean Platelet Volume 7.8 fL (7.4-10.4); Platelet Count 138 10x3/uL (130-400); RBC Distribution Width 16.1 % (11.5-14.5); Red Blood Cell (RBC) Count 3.12 mill/uL (4.70-6.10); White Blood Cell (WBC) Count 3.2 10x3/uL (4.8-10.8)
[2022-08-01 20:26] LABS: Anion Gap 15 mmol/L (10-20); BUN (Urea Nitrogen) 15 mg/dL (8.4-25.7); Calc. Creatinine Clearance 0 mL/min (70-130); Calcium 7.1 mg/dL (7.8-10.44); Carbon Dioxide 28 mmol/L (23-31); Chloride 99 mmol/L (98-107); Estimated GFR 54; Glucose 95 mg/dL (83-110); Potassium 3.2 mmol/L (3.5-5.1); Sodium 139 mmol/L (136-145)
== END 2022-08-01 21:22 | disposition home or self-care (01) ==
LOC: ERS 18:49
DX: R31.9 Hematuria, unspecified (principal); D72.819 Decreased white blood cell count, unspecified; E11.9 Type 2 diabetes mellitus without complications; I10 Essential (primary) hypertension; Z79.82 Long term (current) use of aspirin; Z79.899 Other long term (current) drug therapy
CPT/HCPCS: 80048; 85025; 87086; 99283

== ENCOUNTER 2022-08-13 07:59 | Outpatient (CLI) | payer MEDICARE ==
[2022-08-13] MEDS ORDERED: Iopamidol 300 61% 100 ML VIAL FS ONE (10:46)
== END 2022-08-13 08:00 | disposition home or self-care (01) ==
LOC: CT 07:59
PROVIDERS: ATTEND Internal Medicine Medical Oncology
DX: C64.2 Malignant neoplasm of left kidney, except renal pelvis (principal); R59.0 Localized enlarged lymph nodes; R91.8 Other nonspecific abnormal finding of lung field
CPT/HCPCS: 70491; 71260; 74177; 78306; A9503